=== PATIENT | female | born 1970 | race African-American/Black ===

== ENCOUNTER 2022-11-15 05:13 | Inpatient (IN) ==
[2022-11-15] MEDS ORDERED: OPTIRAY 320 125ml IV ONE (05:39)
--- NOTE | 2022-11-15 05:40 | Emergency Department Note ---
Impression & Plan Acute cerebrovascular accident (CVA), Acute hyperglycemia Admit to the [facility] ED Provider Note NAME: ANNY BATEMAN AGE: 52 SEX: F ARRIVES VIA: Walk-In INFORMANT: Patient's ED PROVIDER(S): Rosalinda Mosquera DO CHIEF COMPLAINT: Left-sided facial droop PLAN: Disposition: Admit to the [facility] Condition: Stable MEDICAL DECISION MAKING: This is a 52-year-old female patient who presents to the emergency department with sudden onset of left-sided facial droop. Patient awoke from sleep with slurred speech. She has a history of uncontrolled diabetes and hypertension. Last known well time was approximately 5 hours ago when she went to sleep. Upon arrival here in the emergency department, the patient's facial droop seems to be improving. She still remains weak in the right arm. Noncontrasted CT scan of the brain is unremarkable but the CT angiogram shows an M2 occlusion. Veronica gustafsonstla - Dr. Stratton was consulted but they did not feel they could offer any intervention at this time. The patient was not a candidate for TNKase as her symptoms were improving. Laboratory studies revealed significant hyperglycemia. Renal function was normal. I discussed the case with the [facility]ist-Dr. Salomon and she will evaluate for further inpatient care. Triage Nursing notes reviewed and agree with them. Additional history obtained from the patient's who is at the bedside Vital Signs: reviewed and remarkable for hypertension Differential diagnosis: Hypoglycemia, hypoglycemia, CVA, TIA Diagnostics interpreted by me: ECG: Normal sinus rhythm at a rate of [address] segment elevation or ectopy. There is a prolonged QTc at 497 ms. Cardiac Monitoring: Normal sinus rhythm at 93 Imaging studies: As per stat rad CT brain: See report CTA brain: See report CTA neck: See report Laboratory studies: See below Consultation(s): Dr. Stratton-Veronica telestroke HPI: 52/F arrives for evaluation of slurred speech and facial droop. The patient was in her usual state of health last evening except for increased edema in both lower extremities for which she took an extra torsemide. She awoke between 230 and 3:00 in the morning to go to the bathroom and felt dizzy. She noticed that she had some right-sided facial droop. She tried to take a drink and noted the water was running out of the right side of her mouth. She woke her who noted that she was having difficulty with speech and that her speech was slurred. They brought her here to the emergency department for evaluation of a possible stroke. PAST MEDICAL HISTORY:Obesity, diabetes, hypertension PAST SURGICAL HISTORY:See Below FAMILY HISTORY: See list SOCIAL HISTORY: Patient lives with her . She does not smoke or drink alcohol. HOME MEDICATIONS:See Below ALLERGIES: Some fruits VITALS:See Below PHYSICAL EXAMINATION: HEENT: Head - normocephalic and atraumatic. Pupils are equal, round, and reactive to light. Extraocular eye muscles are intact and sclera are anicteric. Ears - bilaterally patent canals with noninjected tympanic membranes and no evidence of hemotympanum. Nose - moist nasal mucosa without discharge. Mouth - moist buccal mucosa. Oropharynx is nonerythematous and there is no tonsillar exudate or edema noted. Neck: Supple; no JVD, nuchal rigidity, cervical lymphadenopathy, or auscultated bruits. Heart: Regular rate and rhythm. There is a normal S1 and S2 with no murmurs, clicks, or gallops appreciated. Lungs: Clear to auscultation bilaterally with no wheezes, rales, or rhonchi. Abdomen: Soft, completely nontender, nondistended, with good bowel sounds. There are no palpable pulsatile masses or hepatosplenomegaly. There is no guarding, rigidity, or rebound noted. Extremities: No evidence of cyanosis, clubbing, or edema. There are easily palpable peripheral pulses. Neuro:The patient is awake and alert, oriented to day, time, and place. Patient has significant weakness in her right upper extremity. She is left-handed. She has normal strength in both lower extremities. There are no cerebellar signs. Cranial nerves II through XII are intact except for slight droop to the right side of her mouth. This droop has significantly improved since she arrived here in the emergency department. ED COURSE: Times/Reassessments: Patient was evaluated quickly and A1, a stroke alert was called and then she was sent directly over for CT/CTA of the brain and neck. An order was placed for continuous cardiac monitoring. Patient was a normal sinus rhythm at a rate of 93. She did a twelve-lead EKG done as described above. Laboratory studies were drawn as above. [place] telestroke was performed. Overall, the patient's right-sided facial droop seems to be improving. The case was discussed at length with the [facility] neurologist as well as Dr. Salomon. Rosalinda Mosquera DO Past Med/Surg History Medical History Asthma Diabetes Hypertension Surgical History History of lipoma Family History Other Asthma Diabetes Hypertension Social History Smoking Status: Never smoker Hx Alcohol Use: Yes Alcohol type: beer, wine and hard liquor Hx Substance Use: No Preferred Language: Luxembourgish Communication Ability: Effective [employer] Coin [employer]er Required: No Beliefs That Will Affect Care: None Current Living Situation: Spouse Feels Safe at Home: Yes Assistive Devices: Glasses Allergies Allergies Allergy/AdvReac Type Severity Reaction Status Date / Time orange Allergy Hives Verified 11/15/22 09:57 peach Allergy Hives Verified 11/15/22 09:57 Home Meds Home Medications Medication Instructions Recorded Confirmed atorvastatin 40 mg tablet 40 mg PO DAILY 11/15/22 11/15/22 budesonide-formoterol HFA 160 2 puff inhalation BID 11/15/22 11/15/22 mcg-4.5 mcg/actuation aerosol inhaler lisinopril 20 mg tablet 20 mg PO DAILY 11/15/22 11/15/22 Results & Data (ED) Vital Signs Vital Signs - 24 hr 11/15/22 05:15 11/15/22 05:42 11/15/22 05:21 Pulse Rate 89 85 Pulse Rate from SpO2 Sensor Pulse Rhythm Regular Respiratory Rate 22 Respiratory Effort / Characteristics Non-Labored Spontaneous Respiratory Depth Normal Respiratory Pattern Regular Blood Pressure 144/84 H Blood Pressure Mean 104 Blood Pressure Position Sitting Pulse Oximetry 100 95 Oxygen Delivery Method Room Air Sepsis Recent Fever Within 48 Hours No Sepsis New/Unexplained Change in Mental Status N/A Sepsis Action Taken by Nursing No Action Required 11/15/22 05:40 11/15/22 05:42 11/15/22 05:43 Pulse Rate 85 84 Pulse Rate from SpO2 Sensor Pulse Rhythm Respiratory Rate 23 22 Respiratory Effort / Characteristics Respiratory Depth Respiratory Pattern Blood Pressure 155/116 H 162/93 H Blood Pressure Mean 129 116 Blood Pressure Position Pulse Oximetry 100 Oxygen Delivery Method Sepsis Recent Fever Within 48 Hours Sepsis New/Unexplained Change in Mental Status Sepsis Action Taken by Nursing 11/15/22 05:45 11/15/22 06:00 11/15/22 06:02 Pulse Rate 85 80 90 Pulse Rate from SpO2 Sensor 83 81 89 Pulse Rhythm Respiratory Rate 19 22 22 Respiratory Effort / Characteristics Respiratory Depth Respiratory Pattern Blood Pressure Blood Pressure Mean Blood Pressure Position Pulse Oximetry 100 99 100 Oxygen Delivery Method Sepsis Recent Fever Within 48 Hours Sepsis New/Unexplained Change in Mental Status Sepsis Action Taken by Nursing 11/15/22 06:04 11/15/22 06:04 11/15/22 06:11 Pulse Rate 89 84 Pulse Rate from SpO2 Sensor 89 88 Pulse Rhythm Respiratory Rate 26 H 25 H Respiratory Effort / Characteristics Respiratory Depth Respiratory Pattern Blood Pressure 167/115 H Blood Pressure Mean 132 Blood Pressure Position Pulse Oximetry 96 100 Oxygen Delivery Method Sepsis Recent Fever Within 48 Hours Sepsis New/Unexplained Change in Mental Status Sepsis Action Taken by Nursing 11/15/22 06:11 11/15/22 06:15 11/15/22 06:21 Pulse Rate 98 H 88 Pulse Rate from SpO2 Sensor 98 H 86 Pulse Rhythm Respiratory Rate 20 26 H Respiratory Effort / Characteristics Respiratory Depth Respiratory Pattern Blood Pressure 182/116 H 174/111 H Blood Pressure Mean 138 132 Blood Pressure Position Pulse Oximetry 100 99 Oxygen Delivery Method Sepsis Recent Fever Within 48 Hours Sepsis New/Unexplained Change in Mental Status Sepsis Action Taken by Nursing 11/15/22 06:30 11/15/22 06:40 11/15/22 06:51 Pulse Rate 97 H 84 82 Pulse Rate from SpO2 Sensor 83 83 Pulse Rhythm Respiratory Rate 17 24 28 H Respiratory Effort / Characteristics Respiratory Depth Respiratory Pattern Blood Pressure 154/77 H 145/81 H 164/99 H Blood Pressure Mean 102 102 120 Blood Pressure Position Pulse Oximetry 100 98 Oxygen Delivery Method Sepsis Recent Fever Within 48 Hours Sepsis New/Unexplained Change in Mental Status Sepsis Action Taken by Nursing Laboratory Data 11/15/22 Unknown Lab Results 11/15/22 11/15/22 11/15/22 Range/Units 05:33 05:38 05:38 WBC 6.52 (4.8-10.8) K/ul RBC 4.93 (4.20-5.40) M/uL Hgb 12.2 (12.0-16.0) g/dl POC Hgb 14.6 (12.0-16.0) g/dl Hct 37.7 (37.0-47.0) % POC Hct 43 (37-47) % MCV 76.5 L (80.0-100.0) fL MCH 24.7 L (25.0-34.0) pg MCHC 32.4 (32.0-36.0) g/dL RDW Std Deviation 38.5 (36.4-46.3) fL RDW Coeff of Gurmeet 13.9 (11.5-14.5) % Plt Count 230 (130-400) K/uL MPV 11.0 (9.4-12.4) fL PT 11.6 (9.0-12.0) Seconds INR 1.1 (0.9-1.1) APTT 28.8 (21.0-31.0) Seconds PTT Ratio 1.0 POC Sodium 138 (135-144) mmol/L Sodium (136-145) mmol/L POC Potassium 3.6 (3.3-5.0) mmol/L Potassium (3.5-5.1) mmol/L POC Chloride 98 L (101-112) mmol/L Chloride (98-107) mmol/L Carbon Dioxide (21-32) mmol/L POC Total CO2 27 (24-31) mmol/L Anion Gap (3-11) POC Anion Gap 18.0 (16-25) mmol/L POC BUN 17 (7-18) mg/dl BUN (6-23) mg/dl Creatinine (0.6-1.2) mg/dl POC Creatinine 0.8 (0.6-1.3) mg/dl Est Cr Clr Drug Dosing Est GFR ( Amer) ml/min Est GFR (Non-Af Amer) ml/min BUN/Creatinine Ratio (10-20) Glucose (70-99(Fasting)) mg/dl POC Glucose (70-99) mg/dl POC Glucose (other) 339 H (70-99) mg/dl Calcium (8.6-10.3) mg/dl POC Ioniz Calcium [place] 1.10 L (1.12-1.32) mmol/l Magnesium (1.7-2.4) mg/dl Total Bilirubin (0.2-1.0) mg/dl AST (13-39) U/L ALT (7-52) U/L Alkaline Phosphatase (34-104) U/L Troponin I High Sens (0-14) pg/ml Total Protein (6.0-8.3) gm/dl Albumin (3.4-5.0) gm/dl Globulin (2.5-4.0) gm/dl Albumin/Globulin Ratio (0.9-2) SARS-CoV-2, RNA, NAAT (NEGATIVE) 11/15/22 11/15/22 11/15/22 Range/Units 05:38 05:38 05:39 WBC (4.8-10.8) K/ul RBC (4.20-5.40) M/uL Hgb (12.0-16.0) g/dl POC Hgb (12.0-16.0) g/dl Hct (37.0-47.0) % POC Hct (37-47) % MCV (80.0-100.0) fL MCH (25.0-34.0) pg MCHC (32.0-36.0) g/dL RDW Std Deviation (36.4-46.3) fL RDW Coeff of Gurmeet (11.5-14.5) % Plt Count (130-400) K/uL MPV (9.4-12.4) fL PT (9.0-12.0) Seconds INR (0.9-1.1) APTT (21.0-31.0) Seconds PTT Ratio POC Sodium (135-144) mmol/L Sodium 135 L (136-145) mmol/L POC Potassium (3.3-5.0) mmol/L Potassium 3.7 (3.5-5.1) mmol/L POC Chloride (101-112) mmol/L Chloride 98 (98-107) mmol/L Carbon Dioxide 28 (21-32) mmol/L POC Total CO2 (24-31) mmol/L Anion Gap 9 (3-11) POC Anion Gap (16-25) mmol/L POC BUN (7-18) mg/dl BUN 16 (6-23) mg/dl Creatinine 0.85 (0.6-1.2) mg/dl POC Creatinine (0.6-1.3) mg/dl Est Cr Clr Drug Dosing Not Reportable Est GFR ( Amer) 91.3 ml/min Est GFR (Non-Af Amer) 78.8 ml/min BUN/Creatinine Ratio 18.8 (10-20) Glucose 330 H* (70-99(Fasting)) mg/dl POC Glucose 303 H* (70-99) mg/dl POC Glucose (other) (70-99) mg/dl Calcium 9.1 (8.6-10.3) mg/dl POC Ioniz Calcium [place] (1.12-1.32) mmol/l Magnesium 1.3 L (1.7-2.4) mg/dl Total Bilirubin 0.4 (0.2-1.0) mg/dl AST 12 L (13-39) U/L ALT 7 (7-52) U/L Alkaline Phosphatase 94 (34-104) U/L Troponin I High Sens 10.1 (0-14) pg/ml Total Protein 7.2 (6.0-8.3) gm/dl Albumin 3.9 (3.4-5.0) gm/dl Globulin 3.3 (2.5-4.0) gm/dl Albumin/Globulin Ratio 1.2 (0.9-2) SARS-CoV-2, RNA, NAAT (NEGATIVE) 11/15/22 Range/Units 06:22 WBC (4.8-10.8) K/ul RBC (4.20-5.40) M/uL Hgb (12.0-16.0) g/dl POC Hgb (12.0-16.0) g/dl Hct (37.0-47.0) % POC Hct (37-47) % MCV (80.0-100.0) fL MCH (25.0-34.0) pg MCHC (32.0-36.0) g/dL RDW Std Deviation (36.4-46.3) fL RDW Coeff of Gurmeet (11.5-14.5) % Plt Count (130-400) K/uL MPV (9.4-12.4) fL PT (9.0-12.0) Seconds INR (0.9-1.1) APTT (21.0-31.0) Seconds PTT Ratio POC Sodium (135-144) mmol/L Sodium (136-145) mmol/L POC Potassium (3.3-5.0) mmol/L Potassium (3.5-5.1) mmol/L POC Chloride (101-112) mmol/L Chloride (98-107) mmol/L Carbon Dioxide (21-32) mmol/L POC Total CO2 (24-31) mmol/L Anion Gap (3-11) POC Anion Gap (16-25) mmol/L POC BUN (7-18) mg/dl BUN (6-23) mg/dl Creatinine (0.6-1.2) mg/dl POC Creatinine (0.6-1.3) mg/dl Est Cr Clr Drug Dosing Est GFR ( Amer) ml/min Est GFR (Non-Af Amer) ml/min BUN/Creatinine Ratio (10-20) Glucose (70-99(Fasting)) mg/dl POC Glucose (70-99) mg/dl POC Glucose (other) (70-99) mg/dl Calcium (8.6-10.3) mg/dl POC Ioniz Calcium [place] (1.12-1.32) mmol/l Magnesium (1.7-2.4) mg/dl Total Bilirubin (0.2-1.0) mg/dl AST (13-39) U/L ALT (7-52) U/L Alkaline Phosphatase (34-104) U/L Troponin I High Sens (0-14) pg/ml Total Protein (6.0-8.3) gm/dl Albumin (3.4-5.0) gm/dl Globulin (2.5-4.0) gm/dl Albumin/Globulin Ratio (0.9-2) SARS-CoV-2, RNA, NAAT NEGATIVE (NEGATIVE) Administered Medications Acetaminophen (Acetaminophen 325 Mg Tab) 650 mg PO Q4H PRN PRN Reason: Pain or Fever Stop: 12/15/22 09:36 Last Admin: 11/15/22 19:39 Dose: 650 mg Documented By: MNM Atorvastatin Calcium (Atorvastatin 40 Mg Tab) 40 mg PO DAILY [facility] Stop: 12/15/22 09:36 Last Admin: 11/15/22 11:09 Dose: 40 mg Documented By: OO Insulin Aspart (Insulin Aspart Per Unit Charge) 0 units SC ACHS [facility] Stop: 12/15/22 11:29 Last Admin: 11/15/22 17:40 Dose: 3 units Documented By: KRYSTINA Co-signed By: LINDY Admin: 11/15/22 17:14 Dose: 9 units Documented By: KRYSTINA Co-signed By: DEMAR Admin: 11/15/22 14:15 Dose: 4 units Documented By: KRYSTINA Co-signed By: LINDY Admin: 11/15/22 12:55 Dose: 4 units Documented By: KRYSTINA Co-signed By: LINDY Discontinued Medications Aspirin (Aspirin Chew 324 Mg) Confirm Administered Dose 324 mg .ROUTE .STK-MED ONE Stop: 11/15/22 07:09 Last Admin: 11/15/22 07:14 Dose: 324 mg Documented By: AVA Clopidogrel Bisulfate (Clopidogrel Bisulfate 300 Mg Tab) Confirm Administered Dose 300 mg .ROUTE .STK-MED ONE Stop: 11/15/22 07:09 Last Admin: 11/15/22 07:14 Dose: 300 mg Documented By: AVA Gadobutrol (Gadobutrol 65ml Vial) 13 ml IV ONCE ONE Stop: 11/15/22 16:21 Last Admin: 11/15/22 16:20 Dose: 13 ml Documented By: ZULEMA Insulin Human Regular 10 units (/ Syringe) 10 mls @ 40 mls/min IV NOW ONE Stop: 11/15/22 08:16 Last Admin: 11/15/22 08:26 Dose: 40 mls/min Documented By: AVA Co-signed By: ANAT Sodium Chloride (Nss 1000ml) 1,000 mls @ 100 mls/hr IV .Q10H IZAIAH Stop: 11/15/22 19:36 Last Admin: 11/15/22 11:04 Dose: 100 mls/hr Documented By: KRYSTINA Magnesium Sulfate/Dextrose (Magnesium Sulfate / D5w) 1 gm in 100 mls @ 50 mls/hr IV Q2H IZAIAH Stop: 11/15/22 16:29 Last Admin: 11/15/22 18:19 Dose: 50 mls/hr Documented By: Infusion: 11/15/22 16:29 Dose: 50 mls/hr Documented By: Admin: 11/15/22 14:29 Dose: 50 mls/hr Documented By: Infusion: 11/15/22 13:04 Dose: 50 mls/hr Documented By: Admin: 11/15/22 11:04 Dose: 50 mls/hr Documented By: OO Insulin Aspart (Insulin Aspart Per Unit Charge) 0 units SC Q6 IZAIAH Stop: 12/15/22 10:29 Last Admin: 11/15/22 10:26 Dose: 3 units Documented By: OO Co-signed By: DEMAR Insulin Glargine (Lantus Per Unit Charge) 20 units SQ NOW ONE Stop: 11/15/22 13:31 Last Admin: 11/15/22 14:05 Dose: 20 units Documented By: OJennifer Co-signed By: MTP Ioversol (Optiray 320 125ml) 120 ml IV ONCE ONE Stop: 11/15/22 05:40 Last Admin: 11/15/22 05:40 Dose: 120 ml Documented By: BRM Discharge Plan Visit Data Chief Complaint: Stroke Alert ED Provider: Rosalinda Mosquera Discharge Problem: Acute cerebrovascular accident (CVA), Acute hyperglycemia Patient Disposition: Admitted As Inpatient Discharge Instructions Interventions: ED Discharge Assessment Last Done: 11/15/22 08:23
--- NOTE | 2022-11-15 05:43 | CT Scan Report ---
Exam(s): CT HEAD Without Contrast EXAM: CT Head Without Intravenous Contrast CLINICAL HISTORY: Reason for exam: Neuro deficit, acute, stroke suspected. TECHNIQUE: Axial computed tomography images of the head/brain without intravenous contrast. CTDI is 37.32 mGy and DLP is 546.36 mGy-cm. Automated exposure control was utilized for the study. A dose lowering technique was utilized adhering to the principles of ALARA. COMPARISON: No relevant prior studies available. FINDINGS: There is no acute intracranial hemorrhage or major vascular territory infarct. No mass effect or midline shift seen. There is no ventriculomegaly. Scattered hypodensities throughout the periventricular and subcortical white matter are noted, likely sequela of chronic microvascular changes. The calvarium is intact. Orbits unremarkable. The visualized paranasal sinuses and mastoid air cells are clear. IMPRESSION: No acute intracranial pathology. If persistent clinical concern for acute stroke, MRI could further evaluate Sequela of chronic microvascular ischemic angiopathy. Communications: Call Doctor Stroke Electronically signed by: David Duncan M.D. 11/15/22 05:42 AM
[2022-11-15 05:45] LABS: iSTAT Creatinine 0.8 mg/dl (0.6-1.3); iSTAT Hemoglobin 14.6 g/dl (12.0-16.0); iSTAT Ionized Calcium 1.1 mmol/l (1.12-1.32); iSTAT Potassium 3.6 mmol/L (3.3-5.0)
[2022-11-15 05:52] LABS: Hematocrit (blood only) 37.7 % (37.0-47.0); Hemoglobin 12.2 g/dl (12.0-16.0); Mean Corpuscular Hemoglobin 24.7 pg (25.0-34.0); Mean Corpuscular Hgb Conc 32.4 g/dL (32.0-36.0); Mean Corpuscular Volume 76.5 fL (80.0-100.0); Platelet Count 230 K/uL (130-400); RDW Coefficient of Variation 13.9 % (11.5-14.5); RDW Standard Deviation 38.5 fL (36.4-46.3); Red Blood Count 4.93 M/uL (4.20-5.40); White Blood Count 6.52 K/ul (4.8-10.8)
--- NOTE | 2022-11-15 06:01 | CT Scan Report ---
Exam(s): CTA NECK With Contrast IV Amt: 120 ML EXAM: CT Angiography Neck With Intravenous Contrast CLINICAL HISTORY: Reason for exam: neuro deficit, acute stroke suspected. TECHNIQUE: Routine carotid CT angiography protocol was performed with intravenous contrast. NASCET criteria using the distal ICAs for comparison were used for evaluation of stenoses. Automated exposure control was utilized for the study. A dose lowering technique was utilized adhering to the principles of ALARA. MIP reconstructed images were created and reviewed. CONTRAST: Patient received 120 ML of IV contrast COMPARISON: None. FINDINGS: VASCULATURE: Right common carotid artery: No occlusion or significant stenosis. No dissection. Right internal carotid artery: Extracranial segment is patent with no occlusion or significant stenosis. No dissection. Right external carotid artery: Unremarkable. No occlusion. Right vertebral artery: No occlusion or significant stenosis. No dissection. Left common carotid artery: No occlusion or significant stenosis. No dissection. Left internal carotid artery: Extracranial segment is patent with no occlusion or significant stenosis. No dissection. Left external carotid artery: Unremarkable. No occlusion. Left vertebral artery: No occlusion or significant stenosis. No dissection. NECK: Bones/joints: Multilevel cervical spondylosis. Soft tissues: No acute findings. Thyroid: 2.6 cm nodule in the right thyroid lobe. Nonemergent ultrasound suggested to further evaluate. Lung apices: Prominent pulmonary vein in the right lung apex. CAROTID STENOSIS REFERENCE USING NASCET CRITERIA: % ICA stenosis = (1 - narrowest ICA diameter/diameter of distal cervical ICA) x 100. Mild - <50% stenosis. Moderate - 50-69% stenosis. Severe - 70-94% stenosis. Near occlusion - 95-99% stenosis. Occluded - 100% stenosis. IMPRESSION: No acute findings in the arteries of the neck. 2.6 cm nodule in the right thyroid lobe. Nonemergent ultrasound suggested to further evaluate. Prominent pulmonary vein in the right lung apex, nonemergent CTA chest could further characterize for underlying vascular anomalies. Communications: Call Doctor Stroke Electronically signed by: David Duncan M.D. 11/15/22 06:00 AM
[2022-11-15 06:04] LABS: Alanine Aminotransferase 7 U/L (7-52); Albumin Globulin Ratio 1.2 (0.9-2); Albumin Level 3.9 gm/dl (3.4-5.0); Alkaline Phosphatase 94 U/L (34-104); Anion Gap 9 (3-11); Aspartate Aminotransferase 12 U/L (13-39); BUN Creatinine Ratio 18.8 (10-20); Bilirubin,Total 0.4 mg/dl (0.2-1.0); Blood Urea Nitrogen 16 mg/dl (6-23); Calcium 9.1 mg/dl (8.6-10.3); Carbon Dioxide 28 mmol/L (21-32); Chloride 98 mmol/L (98-107); Est GFR (African American) 91.3 ml/min; Est GFR (Non-African American) 78.8 ml/min; Globulin 3.3 gm/dl (2.5-4.0); INR 1.1 (0.9-1.1); Magnesium 1.3 mg/dl (1.7-2.4); Partial Thromboplastin Time 28.8 Seconds (21.0-31.0); Potassium 3.7 mmol/L (3.5-5.1); Prothrombin Time 11.6 Seconds (9.0-12.0); Sodium 135 mmol/L (136-145); Total Protein 7.2 gm/dl (6.0-8.3)
--- NOTE | 2022-11-15 06:06 | CT Scan Report ---
Exam(s): CTA HEAD With Contrast IV Amt: 120 ML EXAM: CT Angiography Head With Intravenous Contrast CLINICAL HISTORY: Reason for exam: neuro deficit, acute stroke suspected. TECHNIQUE: Axial computed tomographic angiography images of the head with intravenous contrast. Automated exposure control was utilized for the study. A dose lowering technique was utilized adhering to the principles of ALARA. MIP reconstructed images were created and reviewed. CONTRAST: Patient received 120 ML of IV contrast COMPARISON: Recently performed CT head. FINDINGS: Right internal carotid artery: Mild atherosclerosis. Intracranial segment is patent with no significant stenosis. No aneurysm. Right anterior cerebral artery: Multifocal short segment severe stenosis with distal reconstitution of caliber within the A2 and A3 segments of the bilateral ACAs. No aneurysm. Right middle cerebral artery: No occlusion or significant stenosis. No aneurysm. Right posterior cerebral artery: No occlusion or significant stenosis. No aneurysm. Right vertebral artery: Unremarkable as visualized. Left internal carotid artery: Mild atherosclerosis. Intracranial segment is patent with no significant stenosis. No aneurysm. Left anterior cerebral artery: See above. Left middle cerebral artery: Focal occlusion in the middle M2 segment of the left MCA with distal reconstitution of caliber. Distal narrowing with reconstitution of caliber within some of the other M3 segments on the left. No aneurysm. Left posterior cerebral artery: No occlusion or significant stenosis. No aneurysm. Left vertebral artery: Unremarkable as visualized. Basilar artery: No occlusion or significant stenosis. No aneurysm. IMPRESSION: Focal occlusion in the middle M2 segment of the left MCA with distal reconstitution of caliber. Distal narrowing with reconstitution of caliber within some of the other M3 segments on the left. Additional multifocal stenosis in the bilateral ACAs. Correlation for underlying vasculitic phenomena suggested. Communications: Call Doctor Stroke Electronically signed by: David Duncan M.D. 11/15/22 06:05 AM
[2022-11-15 06:18] LABS: Glucose 330 mg/dl (70-99(Fasting))
--- NOTE | 2022-11-15 06:28 | XRay Report ---
SINGLE VIEW CHEST CLINICAL HISTORY: Strokelike symptoms. FINDINGS: An AP, portable, upright chest radiograph is obtained. No prior studies are available for c omparison at the time of dictation. The examination is degraded by portable technique and apical lord otic positioning. The cardiomediastinal silhouette appears enlarged. The lungs and pleural spaces are clear noting bibasilar atelectasis. No pneumothorax is seen. The skeletal structures appear osteopen ic. The bony thorax is grossly intact. IMPRESSION: No acute cardiopulmonary abnormality. ACT 112: Negative or not required by law. Electronically signed by: Khanh Martinez M.D. 11/15/2022 6:27 AM
[2022-11-15] MEDS ORDERED: CLOPIDOGREL BISULFATE 300 MG TAB PO STA (07:02)
[2022-11-15] MEDS ORDERED: ASPIRIN CHEW 324 MG PO STA (07:02)
--- NOTE | 2022-11-15 07:03 | History & Physical Report ---
Date of Service November 15, 2022 Assessment & Plan (1) Right sided weakness: Plan: 52yo left handed female last normal at 11/15/22 at 03:00 presenting with headache, right sided facial droop and weakness in RUE and RLE. Patient hypertensive, otherwise stable. Labs are significant for hyperglycemia. CT findings as above - noted to have a focal occlusion in the middle M2 segment of the left MCA with distal reconstitution of caliber. Distal narrowing with reconstitution of caliber within some of the other M3 segments on the left. Case discussed with Tele-stroke Neurologist who reports discussing the CTA findings with on-call interventional neurologist. No intervention on middle M2 occlusion at this time. Patient loaded with ASA and Plavix -Admit to PCU -Keep HOB flat -NIHSS and neuro checks per protocol -Check MRI brain -Check 2D echo -Check HgbA1C and Lipid profile -Continue ASA 81mg po daily -Continue Plavix 75mg po daily -Continue Atorvastatin 40mg po daily -Neurology consultation appreciated (2) Asthma: Plan: Chronic. No cough/SOB or wheeze -Continue home Symbicort (3) Diabetes: Plan: Elevated blood sugar on arrival - patient does not take her insulin as prescribed. -Lantus 12u BID -ISS -Pharmacy Glycemic management consult appreciated (4) Hypertension: Plan: Blood pressure presently 151/62 -Hold Lisinopril to allow for permissive HTN Cool right fingers reported by nursing -Check RUE arterial doppler Thyroid nodule in the right lobe -Non-emergent ultrasound when acute issues resolve History of Present Illness Chief Complaint: right sided weakness Primary Care Provider: NO PCP Angie Fitzpatrick is a 52yo female with HTN, DM and Asthma presenting with right sided weakness. Patient was in her usual state of health until last night. She woke up around 0300 and went to the bathroom and felt normal. She woke again at 04:30 to use the bathroom and felt dizzy and "weird". She had numbness on her right face with drooling and slurred speech. Also with difficulty ambulating due to weakness. She was brought into the ER as a Code Stroke. No tPA administered. She is complaining of headache at this time. She feels that her facial droop is improving. No additional complaints at this time. She specifically denies fever, chills, cough, CP, SOB. Denies abdominal pain, nausea, vomiting, diarrhea or constipation. In the ER she is afebrile, hypertensive, otherwise HD stable ER Course: Plavix 300mg ASA 324mg Allergies Allergy/AdvReac Type Severity Reaction Status Date / Time oranges Allergy Hives Uncoded 11/15/22 07:22 peaches Allergy Hives Uncoded 11/15/22 07:22 Home Medications Medication Instructions Recorded Confirmed Type atorvastatin 40 mg tablet 40 mg PO DAILY 11/15/22 11/15/22 History budesonide-formoterol HFA 160 2 puff inhalation BID 11/15/22 11/15/22 History mcg-4.5 mcg/actuation aerosol inhaler lisinopril 20 mg tablet 20 mg PO DAILY 11/15/22 11/15/22 History Past Med/Surg History Medical History (Updated 11/15/22 @ 07:35 by Laxmi Salomon DO) Asthma Diabetes Hypertension Surgical History (Updated 11/15/22 @ 07:30 by Laxmi Salomon DO) History of lipoma Family History (Updated 11/15/22 @ 07:30 by Laxmi Salomon DO) Other Asthma Diabetes Hypertension Social History (Updated 11/15/22 @ 07:30 by Laxmi Salomon DO) Smoking Status: Unknown if ever smoked Hx Alcohol Use: No Hx Substance Use: No Preferred Language: Romansh Feels Safe at Home: Yes Review of Systems Review of Systems: All systems reviewed & are unremarkable except as noted in HPI & below Physical Exam Physical Exam: General: patient resting comfortably, NAD, non-toxic in appearance, AA&O x 4 Skin: warm, dry, intact, no rashes or lesions HEENT: NC/AT, PERRL, EOMI, anicteric sclera, conjunctiva without injection, external ear normal to inspection and nontender, nares patent, moist mucus membranes, dentition intact, no oropharyngeal lesions, neck supple, trachea midline, no LAD, no thyromegaly, no JVD Heart: +S1/S2, regular, no m/r/g Lungs: equal air entry bilaterally, no rales/rhonchi/wheezes Abd: +BS, soft, NT/ND, no masses/organomegaly/ascites Ext: warm, 2+ pulses in UE/LE bilaterally, no clubbing/cyanosis or edema Neuro: AA&O x 4, speech slurred, right facial droop, CN II-XII grossly intact, sensation to light touch intact, MS in RUE 4/5 with drift, LUE 5/5, RLE 5/5, LLE 5/5 Results & Data Results & Data Vital Signs (Past 12 Hours) Vital Signs Pulse Resp BP Pulse Ox O2 Del Method 11/15/22 06:40 84 24 145/81 H 100 11/15/22 06:30 97 H 17 154/77 H 11/15/22 06:21 88 26 H 174/111 H 99 11/15/22 06:15 98 H 20 100 11/15/22 06:11 182/116 H 11/15/22 06:11 84 25 H 100 11/15/22 06:04 167/115 H 11/15/22 06:04 89 26 H 96 11/15/22 06:02 90 22 100 11/15/22 06:00 80 22 99 11/15/22 05:45 85 19 100 11/15/22 05:43 84 22 162/93 H 100 11/15/22 05:42 155/116 H 11/15/22 05:40 85 23 11/15/22 05:21 95 Room Air 11/15/22 05:42 85 11/15/22 05:15 89 22 144/84 H 100 Laboratory Results Laboratory Results WBC 6.52 K/ul (4.8-10.8) 11/15/22 05:38 RBC 4.93 M/uL (4.20-5.40) 11/15/22 05:38 Hgb 12.2 g/dl (12.0-16.0) 11/15/22 05:38 POC Hgb 14.6 g/dl (12.0-16.0) 11/15/22 05:33 Hct 37.7 % (37.0-47.0) 11/15/22 05:38 POC Hct 43 % (37-47) 11/15/22 05:33 MCV 76.5 fL (80.0-100.0) L 11/15/22 05:38 MCH 24.7 pg (25.0-34.0) L 11/15/22 05:38 MCHC 32.4 g/dL (32.0-36.0) 11/15/22 05:38 RDW Std Deviation 38.5 fL (36.4-46.3) 11/15/22 05:38 RDW Coeff of Gurmeet 13.9 % (11.5-14.5) 11/15/22 05:38 Plt Count 230 K/uL (130-400) 11/15/22 05:38 MPV 11.0 fL (9.4-12.4) 11/15/22 05:38 PT 11.6 Seconds (9.0-12.0) 11/15/22 05:38 INR 1.1 (0.9-1.1) 11/15/22 05:38 APTT 28.8 Seconds (21.0-31.0) 11/15/22 05:38 PTT Ratio 1.0 11/15/22 05:38 POC Sodium 138 mmol/L (135-144) 11/15/22 05:33 Sodium 135 mmol/L (136-145) L 11/15/22 05:38 POC Potassium 3.6 mmol/L (3.3-5.0) 11/15/22 05:33 Potassium 3.7 mmol/L (3.5-5.1) 11/15/22 05:38 POC Chloride 98 mmol/L (101-112) L 11/15/22 05:33 Chloride 98 mmol/L (98-107) 11/15/22 05:38 Carbon Dioxide 28 mmol/L (21-32) 11/15/22 05:38 POC Total CO2 27 mmol/L (24-31) 11/15/22 05:33 Anion Gap 9 (3-11) 11/15/22 05:38 POC Anion Gap 18.0 mmol/L (16-25) 11/15/22 05:33 POC BUN 17 mg/dl (7-18) 11/15/22 05:33 BUN 16 mg/dl (6-23) 11/15/22 05:38 Creatinine 0.85 mg/dl (0.6-1.2) 11/15/22 05:38 POC Creatinine 0.8 mg/dl (0.6-1.3) 11/15/22 05:33 Est Cr Clr Drug Dosing Not Reportable 11/15/22 05:38 Est GFR ( Amer) 91.3 ml/min 11/15/22 05:38 Est GFR (Non-Af Amer) 78.8 ml/min 11/15/22 05:38 BUN/Creatinine Ratio 18.8 (10-20) 11/15/22 05:38 Glucose 330 mg/dl (70-99(Fasting)) H* 11/15/22 05:38 POC Glucose 303 mg/dl (70-99) H* 11/15/22 05:39 POC Glucose (other) 339 mg/dl (70-99) H 11/15/22 05:33 Calcium 9.1 mg/dl (8.6-10.3) 11/15/22 05:38 POC Ioniz Calcium [place] 1.10 mmol/l (1.12-1.32) L 11/15/22 05:33 Magnesium 1.3 mg/dl (1.7-2.4) L 11/15/22 05:38 Total Bilirubin 0.4 mg/dl (0.2-1.0) 11/15/22 05:38 AST 12 U/L (13-39) L 11/15/22 05:38 ALT 7 U/L (7-52) 11/15/22 05:38 Alkaline Phosphatase 94 U/L (34-104) 11/15/22 05:38 Total Protein 7.2 gm/dl (6.0-8.3) 11/15/22 05:38 Albumin 3.9 gm/dl (3.4-5.0) 11/15/22 05:38 Globulin 3.3 gm/dl (2.5-4.0) 11/15/22 05:38 Albumin/Globulin Ratio 1.2 (0.9-2) 11/15/22 05:38 SARS-CoV-2, RNA, NAAT NEGATIVE (NEGATIVE) 11/15/22 06:22 Impressions Chest X-Ray 11/15/22 05:21 SINGLE VIEW CHEST CLINICAL HISTORY: Strokelike symptoms. FINDINGS: An AP, portable, upright chest radiograph is obtained. No prior studies are available for comparison at the time of dictation. The examination is degraded by portable technique and apical lordotic positioning. The cardiomediastinal silhouette appears enlarged. The lungs and pleural spaces are clear noting bibasilar atelectasis. No pneumothorax is seen. The skeletal structures appear osteopenic. The bony thorax is grossly intact. IMPRESSION: No acute cardiopulmonary abnormality. ACT 112: Negative or not required by law. Electronically signed by: Khanh Martinez M.D. 11/15/2022 6:[address] 11/15/22 05:21 CR Exam(s): CT HEAD Without Contrast EXAM: CT Head Without Intravenous Contrast CLINICAL HISTORY: Reason for exam: Neuro deficit, acute, stroke suspected. TECHNIQUE: Axial computed tomography images of the head/brain without intravenous contrast. CTDI is 37.32 mGy and DLP is 546.36 mGy-cm. Automated exposure control was utilized for the study. A dose lowering technique was utilized adhering to the principles of ALARA. COMPARISON: No relevant prior studies available. FINDINGS: There is no acute intracranial hemorrhage or major vascular territory infarct. No mass effect or midline shift seen. There is no ventriculomegaly. Scattered hypodensities throughout the periventricular and subcortical white matter are noted, likely sequela of chronic microvascular changes. The calvarium is intact. Orbits unremarkable. The visualized paranasal sinuses and mastoid air cells are clear. IMPRESSION: No acute intracranial pathology. If persistent clinical concern for acute stroke, MRI could further evaluate Sequela of chronic microvascular ischemic angiopathy. Communications: Call Doctor Stroke Electronically signed by: David Duncan M.D. 11/15/22 05:42 AM Head CTA 11/15/22 05:30 CR Exam(s): CTA HEAD With Contrast IV Amt: 120 ML EXAM: CT Angiography Head With Intravenous Contrast CLINICAL HISTORY: Reason for exam: neuro deficit, acute stroke suspected. TECHNIQUE: Axial computed tomographic angiography images of the head with intravenous contrast. Automated exposure control was utilized for the study. A dose lowering technique was utilized adhering to the principles of ALARA. MIP reconstructed images were created and reviewed. CONTRAST: Patient received 120 ML of IV contrast COMPARISON: Recently performed CT head. FINDINGS: Right internal carotid artery: Mild atherosclerosis. Intracranial segment is patent with no significant stenosis. No aneurysm. Right anterior cerebral artery: Multifocal short segment severe stenosis with distal reconstitution of caliber within the A2 and A3 segments of the bilateral ACAs. No aneurysm. Right middle cerebral artery: No occlusion or significant stenosis. No aneurysm. Right posterior cerebral artery: No occlusion or significant stenosis. No aneurysm. Right vertebral artery: Unremarkable as visualized. Left internal carotid artery: Mild atherosclerosis. Intracranial segment is patent with no significant stenosis. No aneurysm. Left anterior cerebral artery: See above. Left middle cerebral artery: Focal occlusion in the middle M2 segment of the left MCA with distal reconstitution of caliber. Distal narrowing with reconstitution of caliber within some of the other M3 segments on the left. No aneurysm. Left posterior cerebral artery: No occlusion or significant stenosis. No aneurysm. Left vertebral artery: Unremarkable as visualized. Basilar artery: No occlusion or significant stenosis. No aneurysm. IMPRESSION: Focal occlusion in the middle M2 segment of the left MCA with distal reconstitution of caliber. Distal narrowing with reconstitution of caliber within some of the other M3 segments on the left. Additional multifocal stenosis in the bilateral ACAs. Correlation for underlying vasculitic phenomena suggested. Communications: Call Doctor Stroke Electronically signed by: David Duncan M.D. 11/15/22 06:05 AM Neck CTA 11/15/22 05:30 CR Exam(s): CTA NECK With Contrast IV Amt: 120 ML EXAM: CT Angiography Neck With Intravenous Contrast CLINICAL HISTORY: Reason for exam: neuro deficit, acute stroke suspected. TECHNIQUE: Routine carotid CT angiography protocol was performed with intravenous contrast. NASCET criteria using the distal ICAs for comparison were used for evaluation of stenoses. Automated exposure control was utilized for the study. A dose lowering technique was utilized adhering to the principles of ALARA. MIP reconstructed images were created and reviewed. CONTRAST: Patient received 120 ML of IV contrast COMPARISON: None. FINDINGS: VASCULATURE: Right common carotid artery: No occlusion or significant stenosis. No dissection. Right internal carotid artery: Extracranial segment is patent with no occlusion or significant stenosis. No dissection. Right external carotid artery: Unremarkable. No occlusion. Right vertebral artery: No occlusion or significant stenosis. No dissection. Left common carotid artery: No occlusion or significant stenosis. No dissection. Left internal carotid artery: Extracranial segment is patent with no occlusion or significant stenosis. No dissection. Left external carotid artery: Unremarkable. No occlusion. Left vertebral artery: No occlusion or significant stenosis. No dissection. NECK: Bones/joints: Multilevel cervical spondylosis. Soft tissues: No acute findings. Thyroid: 2.6 cm nodule in the right thyroid lobe. Nonemergent ultrasound suggested to further evaluate. Lung apices: Prominent pulmonary vein in the right lung apex. CAROTID STENOSIS REFERENCE USING NASCET CRITERIA: % ICA stenosis = (1 - narrowest ICA diameter/diameter of distal cervical ICA) x 100. Mild - <50% stenosis. Moderate - 50-69% stenosis. Severe - 70-94% stenosis. Near occlusion - 95-99% stenosis. Occluded - 100% stenosis. IMPRESSION: No acute findings in the arteries of the neck. 2.6 cm nodule in the right thyroid lobe. Nonemergent ultrasound suggested to further evaluate. Prominent pulmonary vein in the right lung apex, nonemergent CTA chest could further characterize for underlying vascular anomalies. Communications: Call Doctor Stroke Electronically signed by: David Duncan M.D. 11/15/22 06:00 AM Code Status & VTE Plan VTE Prophylaxis Plan VTE Prophylaxis will be ordered: Yes PG Care Time/CCT Total # of Minutes Spent Total Time Spent with Patient: Total time spent is greater than 50% in coordination of care (as documented) at patient's floor/unit and/or counseling patient: Coding Level of Care Code 91420 INT INP/OBS CARE 3/75MIN Diagnoses Right sided weakness R53.1 Asthma J45.909 Diabetes E11.9 Hypertension I10
[2022-11-15] MEDS ORDERED: ASPIRIN CHEW 324 MG ONE (07:08)
[2022-11-15] MEDS ORDERED: CLOPIDOGREL BISULFATE 300 MG TAB ONE (07:08)
[2022-11-15] MEDS ORDERED: NovoLIN-R INSULIN PER UNIT CHARGE IV STA (07:52)
[2022-11-15] MEDS ORDERED: INSULIN HUMAN REGULAR PER UNIT 10 UNITS in SYRINGE 0 ML IV ONE (08:10)
[2022-11-15] MEDS ORDERED: INSULIN HUMAN REGULAR PER UNIT 10 UNITS in SYRINGE 9.9 ML IV ONE (08:15)
[2022-11-15] MEDS ORDERED: PHARMACIST DISCHARGE MED REC CONSULT PRN (09:37)
[2022-11-15] MEDS ORDERED: PHARMACY GLYCEMIC MGMT CONSULT PRN (09:37)
[2022-11-15] MEDS ORDERED: GLUCOSE 10 TAB/TUBE PO PRN (09:37)
[2022-11-15] MEDS ORDERED: GLUCOSE 40% GEL 15 GM TUBE PO PRN (09:37)
[2022-11-15] MEDS ORDERED: GLUCAGON FOR INJ 1 MG VIAL SQ PRN (09:37)
[2022-11-15] MEDS ORDERED: DEXTROSE 50% 50 ML SYRINGE IV PRN (09:37)
[2022-11-15] MEDS ORDERED: CARBOHYDRATES FOR HYPOGLYCEMIA PO PRN (09:37)
[2022-11-15] MEDS ORDERED: ONDANSETRON INJ 2 MG/ML 2 ML VIAL IV PRN (09:37)
[2022-11-15] MEDS ORDERED: SODIUM CHLORIDE 0.9% 1000ML 1,000 ML IV SCH (09:37)
[2022-11-15] MEDS ORDERED: INSULIN ASPART PER UNIT CHARGE SC SCH (10:30)
--- NOTE | 2022-11-15 10:37 | Neurology Consultation ---
Date of Consultation November 15, 2022 Assessment & Plan (1) Acute ischemic left MCA stroke: Plan 52-year-old left handed female awakening early this morning with dysarthria and right hemiparesis in the context of a probable acute left MCA territory stroke due a focal occlusion of the middle M2 segment with distal reconstitution and distal narrowing with reconstitution of caliber with some of the other M3 segments on the left. Additional multifocal stenoses in the bilateral ACAs also noted. Stroke risk factors for this patient include diabetes mellitus and hypertension. Her blood glucose is significantly elevated. She has a normal sinus rhythm on ECG. Follow-up with results of brain MRI. Follow-up with results of echocardiogram. Follow-up with results of lipid panel and hemoglobin A1c. Goal LDL 70 or less, may need to adjust atorvastatin dosage depending on results. Continue with dual antiplatelet therapy consisting of aspirin 81 mg/day and clopidogrel 75 mg/day. Because she has not been on antiplatelet therapy, would recommend transitioning to daily low-dose aspirin monotherapy after 3 weeks. Permissive hypertension appropriate acutely, systolic blood pressure goal 140 to 160 mmHg. (Long-term blood pressure goal less than 130/80.) Given possibility of vasculitis as suggested on CT angiography, would also check inflammatory markers including ESR, CRP, ROXI screen, ANCA, complement levels. If positive would need follow-up with rheumatology. If inflammatory markers are significantly elevated, would consider pursuing temporal artery biopsy. Consider obtaining 30-day mobile cardiac outpatient telemetry. Consultations with speech therapy, PT, OT Please contact me if you have any questions regarding this neurologic consultation. History of Present Illness Reason for Consultation: stroke Requesting Physician: Laxmi Salomon DO Attending Physician: Stephen Jose MD History of Present Illness The patient is a 52-year-old left-handed female who awoke early this morning with right facial numbness and slurred speech. She also complains of weakness of the right arm and headache. She was evaluated in the emergency department and had a telestroke consultation, TNKase was not administered. The telestroke consultation report is not available at this time. Past medical history is notable for diabetes mellitus and hypertension. She is afebrile. She is hypertensive. A CT of the head was negative for hemorrhage or acute process. A CTA of the head reveals a focal occlusion in the middle M2 segment of the left middle cerebral artery with distal reconstitution of caliber. There is distal narrowing with reconstitution of caliber with some of the other M3 segments on the left. Additional multifocal stenoses in the bilateral ACAs also noted, with possibility of vasculitis suggested. CTA of the neck unremarkable. Brain MRI pending at this time. A CBC is unremarkable. A blood glucose was 330. Troponin 10.1. An electrocardiogram reveals a normal sinus rhythm, prolonged QT. She was given a loading dose of clopidogrel and aspirin in the emergency department. Her symptoms are persistent this morning. Allergies Allergy/AdvReac Type Severity Reaction Status Date / Time orange Allergy Hives Verified 11/15/22 09:57 peach Allergy Hives Verified 11/15/22 09:57 Home Medications Medication Instructions Recorded Confirmed Type atorvastatin 40 mg tablet 40 mg PO DAILY 11/15/22 11/15/22 History budesonide-formoterol HFA 160 2 puff inhalation BID 11/15/22 11/15/22 History mcg-4.5 mcg/actuation aerosol inhaler lisinopril 20 mg tablet 20 mg PO DAILY 11/15/22 11/15/22 History Patient History Medical History Asthma Diabetes Hypertension Surgical History History of lipoma Family History Other Asthma Diabetes Hypertension Social History Smoking Status: Never smoker Hx Alcohol Use: Yes Alcohol type: beer, wine and hard liquor Hx Substance Use: No Preferred Language: Latvian Communication Ability: Effective Equipment Mechanic Required: No Beliefs That Will Affect Care: None Current Living Situation: Spouse Feels Safe at Home: Yes Assistive Devices: Glasses Review of Systems Constitutional: no fever and no chills Eyes: no blind spots and no diplopia Ear, Nose, Mouth, Throat: no hearing loss Respiratory: no cough and no dyspnea Cardiovascular: no chest pain and no palpitations Gastrointestinal: no nausea and no vomiting Genitourinary: no dysuria Musculoskeletal: no neck pain and no myalgia Integumentary: no rash and no lesions Neurologic: as per Subjective / HPI, + localized weakness, + loss of sensation, + headache(s) and + abnormal speech Psychiatric: no depression and no anxiety Hematologic / Lymphatic: no easy bleeding and no easy bruising Exam (Neuro) Constitutional: well developed and well nourished; no acute distress Eyes: normal visual hammond by confrontation, PERRL and EOM intact bilaterally Cardiovascular: Vessels: no carotid bruit Neurologic: Oriented to:: Person, Place and Time Memory: Short Term Intact and Remote Intact Attention: Span Intact and Concentration Intact Speech Fluency: Dysarthria Speech Aphasia: negative Aphasia Fund of Knowledge: Current Events, Past History and Vocabulary Cranial Nerves: Normal II, III, IV, , V, VII, VIII, IX, X, XI and XII Motor Strength: Normal Lower Extremities and Hemiparesis Laterality: Right; negative Normal Upper Extremities Motor Tone: Normal Lower Extremities and Normal Upper Extremities Muscle Bulk/Involuntary Movements: No Involuntary Movements; negative Muscle Atrophy Sensation: Light Touch Intact, Pain/Temperature Intact, Vibration Intact and Proprioception Intact Coordination: Finger-Nose Abnormal Laterality: Right; negative Dysdiadochokinesia or Heel-Mendoza Abnormal Deep Tendon Reflexes: Rt Triceps: 1+, Lt Triceps: 1+, Rt Biceps: 1+, Lt Biceps: 1+, Rt Brachioradialis: 1+, Lt Brachioradialis: 1+, Rt Patellar: 1+, Lt Patellar: 1+, Rt Ankle: 1+ and Lt Ankle: 1+ Special Tests: negative Babinski Present Details: Gait cannot be tested. Unable to visualize optic nerves with direct ophthalmoscopic examination. Results & Data Vital Signs (Past 12 Hours) Vital Signs Temp Pulse Pulse Resp BP BP Pulse Ox 11/15/22 08:45 36.5 C 90 20 155/99 H 100 11/15/22 08:00 83 16 142/70 H 97 11/15/22 07:30 87 15 145/76 H 100 11/15/22 07:01 91 H 20 151/67 H 98 11/15/22 06:51 82 28 H 164/99 H 98 11/15/22 06:40 84 24 145/81 H 100 11/15/22 06:30 97 H 17 154/77 H 11/15/22 06:21 88 26 H 174/111 H 99 11/15/22 06:15 98 H 20 100 11/15/22 06:11 182/116 H 11/15/22 06:11 84 25 H 100 11/15/22 06:04 167/115 H 11/15/22 06:04 89 26 H 96 11/15/22 06:02 90 22 100 11/15/22 06:00 80 22 99 11/15/22 05:45 85 19 100 11/15/22 05:43 84 22 162/93 H 100 11/15/22 05:42 155/116 H 11/15/22 05:40 85 23 11/15/22 05:21 95 11/15/22 05:42 85 11/15/22 05:15 89 22 144/84 H 100 O2 Del Method 11/15/22 08:45 Room Air 11/15/22 08:00 11/15/22 07:30 11/15/22 07:01 11/15/22 06:51 11/15/22 06:40 11/15/22 06:30 11/15/22 06:21 11/15/22 06:15 11/15/22 06:11 11/15/22 06:11 11/15/22 06:04 11/15/22 06:04 11/15/22 06:02 11/15/22 06:00 11/15/22 05:45 11/15/22 05:43 11/15/22 05:42 11/15/22 05:40 11/15/22 05:21 Room Air 11/15/22 05:42 11/15/22 05:15 Laboratory Results WBC 6.52, hemoglobin 12.2, hematocrit 37.7, platelet count 230, sodium 135, potassium 3.7, BUN 16, creatinine 0.85, glucose 330, calcium 9.1, magnesium 1.3, AST 12, ALT 7, troponin 10.1, SARS-CoV-[address] of the head including CTA of the head and neck are as described in the HPI. Electrocardiogram is as described in the HPI. Coding Level of Care Code 85888 INT INP/OBS CARE 3/75MIN Diagnoses Acute ischemic left MCA stroke I63.512
[2022-11-15] MEDS: MAGNESIUM SULFATE / D5W 1 GM/100 ML BAG IV SCH ×3 (11:04→18:19)
[2022-11-15] MEDS: ATORVASTATIN 40 MG TAB PO SCH (11:09)
[2022-11-15] MEDS ORDERED: Nursing to Pharmacy Communication SCH (11:30)
[2022-11-15] MEDS: INSULIN ASPART PER UNIT CHARGE SC SCH ×5 (12:55→20:28)
[2022-11-15] MEDS ORDERED: LANTUS PER UNIT CHARGE SQ ONE (13:30)
--- NOTE | 2022-11-15 13:32 | Pharmacy Report ---
Pharmacy Glycemic Short Note 2 - Date of Service November 15, 2022 - Glycemic Short BSG Results (Last 24 hours): 11/15/22 11/15/22 11/15/22 05:33 05:38 05:39 Glucose 330 H* POC Glucose 303 H* POC Glucose (other) 339 H 11/15/22 11/15/22 09:46 11:22 Glucose POC Glucose 210 H 189 H POC Glucose (other) OUTPATIENT ANTIDIABETIC REGIMEN: * N/A * HbA1C pending ASSESSMENT: * Ms Fitzpatrick is a 52 y/o F with a PMH of T2DM who presents with stroke-like symptoms. Initially patient NPO, but now has a diet ordered. * BSG on admission was 330 and patient received 10 units of IV insulin. BSG post IV insulin was 210 mg/dL. * At lunchtime day of admission BSG was 189 mg/dL. * Lantus 20 units (almost full weight-based stress of 1) x 1 since patient did eat some lunch. Scale for tomorrow based upon response. * Novolog weight-based stress of 1-2 due to patient's body habitus. PLAN FOR INPATIENT GLYCEMIC CONTROL: * Basal insulin * Lantus 20 units SQ x 1 then scale 15-30 units * Bolus insulin * NovoLog per scale ACHS or Q6hrs while NPO * Goal Range: Low 110 mg/dL - High 140 mg/dL * Correction Factor: 25 mg/dL/unit * Nutritional / Prandial insulin per carb ratio of 1 unit per 8 grams CHO consumed
--- NOTE | 2022-11-15 14:21 | Ultrasound Report ---
ULTRASOUND RIGHT UPPER EXTREMITY ARTERIAL CLINICAL HISTORY: Cold fingers with discoloration. COMPARISON STUDY: CT angiogram of the neck dated 11/15/2022. TECHNIQUE: Real-time lopez scale and color Doppler sonography of the arteries of the right upper extre mity is performed from the thoracic outlet to the hand. FINDINGS: The right common carotid artery is patent with normal arterial waveforms and velocities pau suring up to 57 cm/s. The right vertebral artery is patent with antegrade flow. Normal arterial wavef orms are seen in the right subclavian artery with velocities measuring up to 70 cm/s. The axillary an d brachial arteries are patent with normal arterial waveforms. Velocities in the axillary artery rafa ure up to 107 cm/s, common velocities within the brachial arteries measure up to 76 cm/s. The radial and ulnar arteries are patent with velocities measuring up to 54 cm/s. IMPRESSION: There is a sonographic evidence of high-grade stenosis or focal vessel cut off throughout the arteries of the right upper extremity. Dictated: 11/15/2022 12:34 PM Transcribed: 11/15/2022 12:42 PM Og [id number] Electronically signed by: Khanh Martinez M.D. 11/15/2022 2:19 PM
[2022-11-15] MEDS ORDERED: GADOBUTROL 65ML VIAL IV ONE (16:20)
--- NOTE | 2022-11-15 16:48 | Magnetic Resonance Report ---
MRI OF THE BRAIN COMBO CLINICAL HISTORY: Right arm numbness. Difficulty with speech. COMPARISON STUDY: CT of the brain dated 11/15/2022. TECHNIQUE: MRI of the brain was performed utilizing various T1 and T2-weighted sequences in the axial , sagittal, and coronal planes. Contrast-enhanced sequences were acquired following the administratio n of 13 cc of Gadavist. FINDINGS: Brain parenchyma: There is age-related involutional change noting moderate to advanced subcortical an d periventricular microangiopathic disease. There is a 13 mm focus of restricted diffusion centered i n the left thalamus consistent with an acute to subacute lacunar infarct. No additional foci of acute ischemia are identified. There is no hemorrhage or midline shift. There is minimal nonspecific enhan cement at the site of infarct. No enhancing mass lesion is identified on the postcontrast images. No extra-axial fluid collection is seen. The cerebellar tonsils are normal in configuration. Ventricles, sulci, and cisterns: Prominent secondary to involutional change. Pituitary and sella: Unremarkable. Intracranial vasculature: Normal flow voids are maintained at the skull base. Orbits: The bony orbits are grossly intact. Orbital contents are normal in appearance. Sinuses and mastoids: Clear. Calvarium: Unremarkable. Cervical cord: Partially visualized cervical spinal cord is normal in morphology and signal intensity . IMPRESSION: 1. Acute to subacute lacunar infarct centered in the left basal ganglia. 2. No additional foci of acute ischemia are identified. 3. There is no hemorrhage or mass effect. 4. Age advanced microangiopathic change. ACT 112: Negative or not required by law. Electronically signed by: Khanh Martinez M.D. 11/15/2022 4:46 PM
--- NOTE | 2022-11-15 17:27 | XCELERA ---
[id number] \\[email or web address]\[id number]}___[id number].pdf
[2022-11-15] MEDS: ACETAMINOPHEN 325 MG TAB PO PRN (19:39)
--- NOTE | 2022-11-16 | Communication Note ---
Date of Service: November 15, 2022 Saw patient on rounds earlier in the day. She was resting in the chair by the window. She was tearful hearing the news that the MRI brain did indeed confirm a left- sided basal ganglia stroke. We discussed potential etiologies. Patient reports that her speech has improved by about "50%" through the day today. Mild RLE weakness at most. Mild-moderate right arm and right hand weakness. She is left-handed. Was not taking daily aspirin prior to this event. She reports having recent issues with her asthma and dyspnea. She also mentions chronic edema of LEs, worse on left. She previously lived in [place]; moved to [place] 2 years ago. 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 She wasn't certain but she thinks her mother may have lupus?? Labs from today reviewed Imaging from today reviewed including CTA head/neck and MRI brain confirming L- sided basal ganglia CVA Echo - A/P: 1. acute left-sided basal ganglia CVA with resulting dysarthria, right arm/hand weakness, and minimal RLE weakness 2. risk factors for #1 -- DM, HTN, hyperlipidemia; cannot exclude vasculitis 3. CTA head with multiple b/l stenosis and acute appearing occlusions ---> Focal occlusion in the middle M2 segment of the left MCA with distal reconstitution of caliber. Distal narrowing with reconstitution of caliber within some of the other M3 segments on the left. 4. uncontrolled T2DM 5. uncontrolled HTN 6. morbid obesity 7. mild systolic CHF/cardiomyopathy - etiology uncertain, and chronicity uncertain 8. ?vasculitis 9. asthma asa/plavix x 3 weeks, then asa 81mg daily thereafter check lipids am; statin check a1c am pharmacy glycemic team on consult for DM control; appreciate their assistance Dr Sow's consult from neuro appreciated --> he advises vasculitic w/u (ESR, CRP, ROXI, etc) given CTA head findings outpatient 30-day event monitor at discharge PT, OT, speech therapy check TSH am given the cardiomyopathy should see cardiology for ongoing management ideally will need beta waldo in addition to JANE in the future allow 24 hours of permissive HTN then start to gradually bring down BPs stop IV fluids due to mildly low EF and the fact she already has LE edema Stephen Jose MD
[2022-11-16 06:20] LABS: Basophils # (auto) 0.05 K/uL (0-0.2); Basophils % (auto) 0.8 %; Eosinophils # (auto) 0.26 K/uL (0-0.50); Eosinophils % (auto) 4.3 %; Hematocrit (blood only) 39.4 % (37.0-47.0); Hemoglobin 12.7 g/dl (12.0-16.0); Immature Granulocytes # (auto) 0.02 K/uL (0.01-0.20); Immature Granulocytes % (auto) 0.3 %; Lymphocytes # (auto) 1.71 K/uL (1.2-3.4); Lymphocytes % (auto) 28.2 %; Mean Corpuscular Hemoglobin 24.6 pg (25.0-34.0); Mean Corpuscular Hgb Conc 32.2 g/dL (32.0-36.0); Mean Corpuscular Volume 76.4 fL (80.0-100.0); Mean Platelet Volume 10.5 fL (9.4-12.4); Monocytes # (auto) 0.43 K/uL (0.11-0.59); Monocytes % (auto) 7.1 %; Neutrophils # (auto) 3.59 K/uL (1.40-6.50); Neutrophils % (auto) 59.3 %; Platelet Count 233 K/uL (130-400); RDW Coefficient of Variation 13.9 % (11.5-14.5); RDW Standard Deviation 38.2 fL (36.4-46.3); Red Blood Count 5.16 M/uL (4.20-5.40); White Blood Count 6.06 K/ul (4.8-10.8)
[2022-11-16 06:54] LABS: Anion Gap 7 (3-11); Calcium 8.6 mg/dl (8.6-10.3); Carbon Dioxide 28 mmol/L (21-32); Chloride 103 mmol/L (98-107); Potassium 3.7 mmol/L (3.5-5.1); Sodium 138 mmol/L (136-145)
[2022-11-16 07:00] LABS: BUN Creatinine Ratio 26.3 (10-20); Blood Urea Nitrogen 15 mg/dl (6-23); C Reactive Protein 2.38 mg/dl (0-0.5); Chol HDL Ratio 5.1 (0-5); Cholesterol 243 mg/dl (0-200); Est GFR (African American) 123.5 ml/min; Est GFR (Non-African American) 106.6 ml/min; Glucose 243 mg/dl (70-99(Fasting)); HDL Cholesterol 48 mg/dl; LDL Cholesterol Calculated 171 mg/dl; Triglycerides 120 mg/dl (0-150); VLDL Cholesterol 24 mg/dl (0-30)
[2022-11-16] MEDS: ACETAMINOPHEN 325 MG TAB PO PRN ×2 (07:33→14:35)
--- NOTE | 2022-11-16 08:06 | Pharmacy Report ---
- Date of Service November 16, 2022 - Pharmacy CVA/TIA Medication Review Medications to Prevent Stroke handout has been added to the patients discharge packet. Antiplatelet(s) * aspirin 81 mg daily, plavix 75 mg daily * neurology recommends dual antiplatelet therapy on discharge, transition to low dose aspirin monotherapy after 3 weeks Cholesterol * High intensity statin: atorvastatin 40 mg daily DVT Prophylaxis * SCDs ordered Therapeutic Anticoagulation * No history of Afib/Aflutter noted Type 2 Diabetes * A1c 10.9% - Discussed with provider and planning on increasing basal insulin on discharge. Patient recently prescribed trulicity but awaiting prior authorization. Diabetes medications with proven CVD benefit include agents such as GLP-1 agonist or SGLT2 inhibitor are beneficial in stroke patients. * Recommended patient have close follow up outpatient for titration of insulin/adjustments of medications for her diabetes
[2022-11-16 08:18] LABS: Estimated Average Glucose 266 mg/dl; Hemoglobin A1C 10.9 % (4.5-5.6)
[2022-11-16] MEDS: INSULIN ASPART PER UNIT CHARGE SC SCH ×5 (08:21→17:23)
[2022-11-16] MEDS: ATORVASTATIN 40 MG TAB PO SCH (08:42)
[2022-11-16] MEDS ORDERED: LANTUS PER UNIT CHARGE SC SCH (09:00)
[2022-11-16] MEDS ORDERED: FLUTICASONE/VILANTEROL 100/25MCG 14 PUFFS/INHALER INH SCH (09:00)
[2022-11-16] MEDS ORDERED: ASPIRIN 81 MG ECTAB PO SCH (09:00)
[2022-11-16] MEDS ORDERED: CLOPIDOGREL BISULFATE 75 MG TAB PO SCH (09:00)
--- NOTE | 2022-11-16 15:12 | Discharge Summary ---
Date of Service November 16, 2022 Admission HPI Per Admitting Provider Anny Bateman is a 52yo female with HTN, DM and Asthma presenting with right sided weakness. Patient was in her usual state of health until last night. She woke up around 0300 and went to the bathroom and felt normal. She woke again at 04:30 to use the bathroom and felt dizzy and "weird". She had numbness on her right face with drooling and slurred speech. Also with difficulty ambulating due to weakness. She was brought into the ER as a Code Stroke. No tPA administered. She is complaining of headache at this time. She feels that her facial droop is improving. No additional complaints at this time. She specifically denies fever, chills, cough, CP, SOB. Denies abdominal pain, nausea, vomiting, diarrhea or constipation. In the ER she is afebrile, hypertensive, otherwise HD stable ER Course: Plavix 300mg ASA 324mg Principal Diagnosis right sided weakness Discharge Exam General: patient resting comfortably, NAD, non-toxic in appearance, AA&O x 4 Skin: warm, dry, intact, no rashes or lesions HEENT: NC/AT, PERRL, EOMI, anicteric sclera, conjunctiva without injection, external ear normal to inspection and nontender, nares patent, moist mucus membranes, dentition intact, no oropharyngeal lesions, neck supple, trachea midline, no LAD, no thyromegaly, no JVD Heart: +S1/S2, regular, no m/r/g Lungs: equal air entry bilaterally, no rales/rhonchi/wheezes Abd: +BS, soft, NT/ND, no masses/organomegaly/ascites Ext: warm, 2+ pulses in UE/LE bilaterally Neuro: AA&O x 4, speech slurred, right facial droop, CN II-XII grossly intact, sensation to light touch intact, MS in RUE 4/5 with drift, LUE 5/5, RLE 5/5, LLE 5/5 Discharge Data Allergies Allergy/AdvReac Type Severity Reaction Status Date / Time orange Allergy Hives Verified 11/15/22 09:57 peach Allergy Hives Verified 11/15/22 09:57 Consultations 11/15/22 06:13 ED Decision to Admit Stat 11/15/22 09:37 Consult Neurology Routine Ordered Studies MRI OF THE BRAIN COMBO CLINICAL HISTORY: Right arm numbness. Difficulty with speech. COMPARISON STUDY: CT of the brain dated 11/15/2022. TECHNIQUE: MRI of the brain was performed utilizing various T1 and T2-weighted sequences in the axial, sagittal, and coronal planes. Contrast-enhanced sequences were acquired following the administration of 13 cc of Gadavist. FINDINGS: Brain parenchyma: There is age-related involutional change noting moderate to advanced subcortical and periventricular microangiopathic disease. There is a 13 mm focus of restricted diffusion centered in the left thalamus consistent with an acute to subacute lacunar infarct. No additional foci of acute ischemia are identified. There is no hemorrhage or midline shift. There is minimal nonspecific enhancement at the site of infarct. No enhancing mass lesion is identified on the postcontrast images. No extra-axial fluid collection is seen. The cerebellar tonsils are normal in configuration. Ventricles, sulci, and cisterns: Prominent secondary to involutional change. Pituitary and sella: Unremarkable. Intracranial vasculature: Normal flow voids are maintained at the skull base. Orbits: The bony orbits are grossly intact. Orbital contents are normal in appearance. Sinuses and mastoids: Clear. Calvarium: Unremarkable. Cervical cord: Partially visualized cervical spinal cord is normal in morphology and signal intensity. IMPRESSION: 1. Acute to subacute lacunar infarct centered in the left basal ganglia. 2. No additional foci of acute ischemia are identified. 3. There is no hemorrhage or mass effect. 4. Age advanced microangiopathic change. ACT 112: Negative or not required by law. [place], [place] [phone] CT Scan Report Patient:ANNY BATEMAN Admit Date:11/15/22 MR#:[id number] Address1: Acct ID:[id number] Address2: Date:1970 [facility] Zip: Age:52 Location:ED Sex:F Room/Bed: Att Phy: Diagnosis:Stroke Barbra Phy:PCP,NO Service Date:11/15/22 Fam Phy: Interpreting Phy:David Duncan MDAdmit Phy: Ordering Phy:Rosalinda Mosquera D.O. cc: ~ ADDENDUM ADDENDUM: 11/15/22 06:09 Call Doctor Regarding Stroke, called Dr. Mosquera on 11/15 06:09 (-04:00) Electronically signed by: David Duncan M.D. Electronically signed by: David Duncan M.D. 11/15/22 06:00 AM ADDENDUM END Exam(s): CTA NECK With Contrast IV Amt: 120 ML EXAM: CT Angiography Neck With Intravenous Contrast CLINICAL HISTORY: Reason for exam: neuro deficit, acute stroke suspected. TECHNIQUE: Routine carotid CT angiography protocol was performed with intravenous contrast. NASCET criteria using the distal ICAs for comparison were used for evaluation of stenoses. Automated exposure control was utilized for the study. A dose lowering technique was utilized adhering to the principles of ALARA. MIP reconstructed images were created and reviewed. CONTRAST: Patient received 120 ML of IV contrast COMPARISON: None. FINDINGS: VASCULATURE: Right common carotid artery: No occlusion or significant stenosis. No dissection. Right internal carotid artery: Extracranial segment is patent with no occlusion or significant stenosis. No dissection. Right external carotid artery: Unremarkable. No occlusion. Right vertebral artery: No occlusion or significant stenosis. No dissection. Left common carotid artery: No occlusion or significant stenosis. No dissection. Left internal carotid artery: Extracranial segment is patent with no occlusion or significant stenosis. No dissection. Left external carotid artery: Unremarkable. No occlusion. Left vertebral artery: No occlusion or significant stenosis. No dissection. NECK: Bones/joints: Multilevel cervical spondylosis. Soft tissues: No acute findings. Thyroid: 2.6 cm nodule in the right thyroid lobe. Nonemergent ultrasound suggested to further evaluate. Lung apices: Prominent pulmonary vein in the right lung apex . [facility], [phone] CT Scan Report Patient: Radha BATEMAN Date: 11/15/22#: [id number]: [id number] NICO[address] DRAcct ID:[id number]: Date: 1970[facility] Zip: [place], [place] [address]Zub: 52Location: EDSex: FRoom/Bed:Att Phy:Diagnosis: StrokePri Phy: PCP,NOService Date: 11/15/22[facility] Phy:Interpreting Phy: David Duncan MDAdmit Phy: Ordering Phy: Rosalinda Mosquera D.O. cc: ~ ADDENDUM ADDENDUM: 11/15/22 06:[address] Stratton on 11/15 06:39 (-04:00) Electronically signed by: David Duncan M.D. Electronically signed by: David Duncan M.D. 11/15/22 06:05 AM ADDENDUM END ADDENDUM ADDENDUM: 11/15/22 06:10 Call Doctor Regarding Stroke, called Dr. Mosquera on 11/15 06:10 (-04:00) Electronically signed by: David Duncan M.D. Electronically signed by: David Duncan M.D. 11/15/22 06:05 AM ADDENDUM END Exam(s): CTA HEAD With Contrast IV Amt: 120 ML EXAM: CT Angiography Head With Intravenous Contrast CLINICAL HISTORY: Reason for exam: neuro deficit, acute stroke suspected. TECHNIQUE: Axial computed tomographic angiography images of the head with intravenous contrast. Automated exposure control was utilized for the study. A dose lowering technique was utilized adhering to the principles of ALARA. MIP reconstructed images were created and reviewed. CONTRAST: Patient received 120 ML of IV contrast COMPARISON: Recently performed CT head. FINDINGS: Right internal carotid artery: Mild atherosclerosis. Intracranial segment is patent with no significant stenosis. No aneurysm. Right anterior cerebral artery: Multifocal short segment severe stenosis with distal reconstitution of caliber within the A2 and A3 segments of the bilateral ACAs. No aneurysm. Right middle cerebral artery: No occlusion or significant stenosis. No aneurysm. Right posterior cerebral artery: No occlusion or significant stenosis. No aneurysm. Right vertebral artery: Unremarkable as visualized. Left internal carotid artery: Mild atherosclerosis. Intracranial segment is patent with no significant stenosis. No aneurysm. Left anterior cerebral artery: See above. Left middle cerebral artery: Focal occlusion in the middle M2 segment of the left MCA with distal reconstitution of caliber. Distal narrowing with reconstitution of caliber within some of the other M3 segments on the left. No aneurysm. Left posterior cerebral artery: No occlusion or significant stenosis. No aneurysm. Left vertebral artery: Unremarkable as visualized. Basilar artery: No occlusion or significant stenosis. No aneurysm. IMPRESSION: Focal occlusion in the middle M2 segment of the left MCA with distal reconstitution of caliber. Distal narrowing with reconstitution of caliber within some of the other M3 segments on the left. Additional multifocal stenosis in the bilateral ACAs. Correlation for underlying vasculitic phenomena suggested. ULTRASOUND RIGHT UPPER EXTREMITY ARTERIAL CLINICAL HISTORY: Cold fingers with discoloration. COMPARISON STUDY: CT angiogram of the neck dated 11/15/2022. TECHNIQUE: Real-time lopez scale and color Doppler sonography of the arteries of the right upper extremity is performed from the thoracic outlet to the hand. FINDINGS: The right common carotid artery is patent with normal arterial waveforms and velocities measuring up to 57 cm/s. The right vertebral artery is patent with antegrade flow. Normal arterial waveforms are seen in the right subclavian artery with velocities measuring up to 70 cm/s. The axillary and brachial arteries are patent with normal arterial waveforms. Velocities in the axillary artery measure up to 107 cm/s, common velocities within the brachial arteries measure up to 76 cm/s. The radial and ulnar arteries are patent with velocities measuring up to 54 cm/s. Communications: Call Doctor Stroke Electronically signed by: David Duncan M.D. 11/15/22 06:05 AM 11/15/22 05:21 CT head/brain wo con Stat 11/15/22 05:30 CT angio head w con Stat CT angio neck with con Stat 11/15/22 09:37 MR brain wo/w con Routine US arterial duplex UE RT Routine Diabetes Follow up Diabetes Follow-up Needed for HgbA1c >9% Hospital Course (1) Right sided weakness: 52yo left handed female last normal at 11/15/22 at 03:00 presenting with headache, right sided facial droop and weakness in RUE and RLE. Patient hypertensive, otherwise stable. Labs are significant for hyperglycemia. CT findings as above - noted to have a focal occlusion in the middle M2 segment of the left MCA with distal reconstitution of caliber. Distal narrowing with reconstitution of caliber within some of the other M3 segments on the left. Case discussed with Tele-stroke Neurologist who reports discussing the CTA findings with on-call interventional neurologist. No intervention on middle M2 occlusion at this time. Patient loaded with ASA and Plavix Completed brain MRI, echocardiogram. LDL is elevated, will increase atorvastatin. Continue with dual antiplatelet therapy consisting of aspirin 81 mg/day and clopidogrel 75 mg/day. Because she has not been on antiplatelet therapy, would recommend transitioning to daily low-dose aspirin monotherapy after 3 weeks. Permissive hypertension appropriate acutely, systolic blood pressure goal 140 to 160 mmHg. (Long-term blood pressure goal less than 130/80.) Given possibility of vasculitis as suggested on CT angiography, would also check inflammatory markers including ESR, CRP, ROXI screen, ANCA, complement levels. If positive would need follow-up with rheumatology. will defer to PCP. Consider obtaining 30-day mobile cardiac outpatient telemetry. Will defer to PCP. -Continue ASA 81mg PO daily -Continue Plavix 75mg PO daily -Continue Atorvastatin 40mg PO daily -Neurology consultation appreciated; (2) Asthma: Chronic. No cough/SOB or wheeze -Continue home Symbicort (3) Diabetes: Elevated blood sugar on arrival - patient does not take her insulin as prescribed. -Lantus 12u BID -ISS -Pharmacy Glycemic management consult appreciated (4) Hypertension: Blood pressure presently 151/62 -Held Lisinopril to allow for permissive HTN will rresume at discharge. Cool right fingers reported by nursing -Check RUE arterial doppler: appears normal on description. Thyroid nodule in the right lobe -Non-emergent ultrasound when acute issues resolve Total Time Total Time Spent Total Time Spent (In Minutes): 32 Discharge Plan Discharge Items Patient Disposition: Home - Self-Care Reason For Visit: RIGHT FACIAL DROOP Discharge Diagnosis: stroke Activity: Resume your previous activity Non-emergency contact: Primary Care Provider Call non-emergency contact if: you have any medication questions Follow-up/Referrals: PCP,NO [Primary Care Provider] - Diet: Carb Consistent or DM2 Addtl Attending Provider Instructions: Good afternoon Mrs. Bateman Sadly it appears you suffered a stroke. When a stroke occurs, you have irreversible loss of brain tissue. This can be caused by a lack of blood flow to brain caused by either bleeding or a blockage in an artery. To help decrease the risk of getting a stroke, we would need to work on decreasing your risk factors. The biggest risk factors you have your diabetes. Uncontrolled diabetes is a silent killer. We will need to make sure you followup with your PCP in 1-2 weeks. You may also need followup with rheumatology but will defer this to your PCP. Please take aspirin daily. You will also take plavix with the aspirin, but only for 3 weeks. After the 3 weeks only only take aspirin. Below is some information of stroke risk factors, when to call 911 and diabetic diet information. Risk Factors for Stroke: You can reduce your chances of stroke by working with your medical provider to adopt a healthy lifestyle. Some specific ways to lower your chance of stroke are: * If you are a smoker, now is the time to stop smoking cigarettes * If you are diabetic, improve the control of your blood sugars * Avoid excessive amounts of alcohol * Control high blood pressure * Lose weight if you are overweight * Be sure to lead an active lifestyle * Eat a healthy diet low in salt, cholesterol and fat You should know about other risk factors for stroke that you are unable to control. These include: * Age 55 years or older * Male gender * Certain racial groups: , or / * Family History of Stroke, Mini stroke or Heart Attack * Sickle Cell Disease Follow Up: It is important for you to keep your follow up appointments with your medical provider. Who to Call and When: Medical Emergencies: Call 911 immediately if you experience any of the following warning signs and symptoms of Stroke: * Sudden numbness or weakness of the face, arm or leg, especially on one side of the body * Sudden confusion, trouble speaking or understanding * Sudden trouble seeing in one or both eyes * Sudden trouble walking, dizziness, loss of balance or coordination * Sudden severe headache with no cause Do not delay calling 911 if you experience any warning signs or symptoms of a stroke. Delay in seeking medical attention may affect what treatments can be given to you. . Here's a patient education guide for a diabetic diet for individuals with type 2 diabetes: 1. Understand the importance of a diabetic diet: A diabetic diet plays a crucial role in managing blood sugar levels and overall health for individuals with type 2 diabetes. It focuses on balanced eating and portion control to help maintain stable blood sugar levels. 2. Choose nutrient-dense foods: Opt for foods that are rich in nutrients and low in added sugars, unhealthy fats, and refined carbohydrates. Include a variety of fruits, vegetables, whole grains, lean proteins, and healthy fats in your meals. 3. Carbohydrate counting: Learn about carbohydrates and how they affect blood sugar levels. Carbohydrates have the most significant impact on blood sugar levels, so it's important to monitor their intake. Work with a registered dietitian to learn carbohydrate counting techniques. 4. Portion control: Be mindful of portion sizes to avoid overeating. Use measuring cups, a food scale, or visual cues to help estimate appropriate portions. Eating smaller, frequent meals throughout the day can also help stabilize blood sugar levels. 5. Focus on fiber: Incorporate high-fiber foods like whole grains, legumes, fruits, and vegetables into your diet. Fiber aids in digestion, helps control blood sugar levels, and promotes a feeling of fullness. 6. Limit added sugars: Avoid or minimize foods and beverages with added sugars such as soda, sweets, desserts, and sugary snacks. Be cautious of hidden sugars in processed foods by reading labels and choosing products with no or low added sugars. 7. Healthy fats: Include healthy fats in moderation, such as avocados, nuts, seeds, and olive oil. These fats can help with satiety and promote heart health. 8. Regular mealtimes: Establish regular meal and snack times to maintain consistent blood sugar levels throughout the day. Avoid skipping meals, as it can lead to blood sugar imbalances. 9. Stay hydrated: Drink plenty of water throughout the day to stay hydrated and support overall health. Limit sugary beverages and opt for water, herbal tea, or unsweetened beverages instead. 10. Monitor blood sugar levels: Check your blood sugar levels regularly as directed by your healthcare provider. This will help you understand how different foods affect your levels and guide your dietary choices. Remember, it's crucial to work with a registered dietitian or healthcare provider to develop an individualized meal plan that meets your specific needs. They can provide personalized guidance, assist with meal planning, and answer any questions you may have about your diabetic diet. Pending Studies at Discharge: No Stand-Alone Forms: My [facility] [employer], Smoking Cessation Medications and DC Order Prescriptions: New clopidogrel 75 mg Tablet 75 mg PO QAM Qty: 21 0RF aspirin 81 mg Tablet,Delayed Release (Dr/Ec) 81 mg PO DAILY Qty: 30 0RF insulin glargine [Lantus U-100 Insulin] 100 unit/mL Solution 30 unit SC DAILY Qty: 10 0RF amlodipine 2.5 mg tablet 2.5 mg PO PM Qty: 30 0RF metformin 500 mg tablet extended release 24 hr 500 mg PO PM Qty: 30 0RF Rx Instructions: take on a full stomach Continued lisinopril 20 mg tablet 20 mg PO DAILY budesonide-formoterol 160-4.5 mcg/actuation HFA aerosol inhaler 2 puff INHALATION BID Changed atorvastatin 40 mg tablet 80 mg PO DAILY Qty: 60 0RF Discharge Orders: Discharge Order (Routine); Ordered 11/16/22 Ordered By: Colton Dumont Admission Data Admit Date/Time: 11/15/22 07:01 Attending Provider: Colton Dumont Admit Provider: Laxmi Salomon Primary Care Provider: PCP,NO Other Providers: Laxmi Salomon ; yKle Sow Coding Level of Care Code 25580 INP/OBS DISCH >30 MIN Diagnoses Right sided weakness R53.1 Asthma J45.909 Diabetes E11.9 Hypertension I10
[2022-11-16] MEDS ORDERED: STROKE PATIENT DISCHARGE STA (16:42)
--- NOTE | 2022-11-17 07:06 | Electrocardiogram Report ---
Test Reason : Blood Pressure : / mmHG Vent. Rate : 086 BPM Atrial Rate : 086 BPM P-R Int : 152 ms QRS Dur : 100 ms QT Int : 416 ms P-R-T Axes : 052 046 051 degrees QTc Int : 497 ms Normal sinus rhythm Prolonged QT Abnormal ECG No previous ECGs available Confirmed by Lorenzo Galicia ([id number]) on 11/17/2022 7:05:39 AM Referred By: NO PCP Confirmed By:Lorenzo Galicia
[2022-11-17] MEDS ORDERED: LANTUS PER UNIT CHARGE SC SCH (09:00)
--- NOTE | 2022-11-18 10:15 | Pharmacy Report ---
Pharmacist Stroke Counseling - Date of Service November 18, 2022 - Scope: Pharmacy has been consulted to provide medication discharge counseling for this patient admitted with ischemic stroke as per the Pharmacist Discharge Counseling for Stroke Patients Protocol. - Medications on Discharge: Home Medications Medication Instructions Recorded Confirmed budesonide-formoterol HFA 160 2 puff inhalation BID 11/15/22 11/15/22 mcg-4.5 mcg/actuation aerosol inhaler lisinopril 20 mg tablet 20 mg PO DAILY 11/15/22 11/15/22 New Rx's Medication Instructions Recorded amlodipine 2.5 mg tablet 2.5 mg PO PM #30 tabs 11/16/22 aspirin 81 mg tablet,delayed 81 mg PO DAILY #30 tabs 11/16/22 release atorvastatin 40 mg tablet 80 mg PO DAILY #60 tabs 11/16/22 clopidogrel 75 mg tablet 75 mg PO QAM #21 tabs 11/16/22 insulin glargine 100 unit/mL 30 unit (0.3 mL) SC DAILY #10 mL 11/16/22 subcutaneous solution (Lantus U-100 Insulin) metformin 500 mg tablet,extended 500 mg PO PM #30 tabs 11/16/22 release 24 hr - Action: The above medications, specifically ones for stroke treatment/prophylaxis, have been reviewed in detail with the patient and/or patient provider service representative(s) prior to discharge. This includes indication, common adverse reactions, drug interactions, and medication administration. Medication counseling has been employed using the teach-back method to ensure understanding. - Outcome: The patient and/or patient provider service representative(s) have demonstrated understanding of the medications. Additional comments: - Patient was able to machine pecan picker prescriptions - Reiterated that she will take aspirin along with clopidogrel for 21 days (until bottle is empty) and then aspirin ongoing (likely lifelong, or until told otherwise) - Patient states that she monitors blood pressure at home and will continue to do so with medication changes Thank you for allowing pharmacy to be involved in the care of this patient. Ple ase call [phone] with any additional questions
== END 2022-11-16 18:22 | disposition home or self-care (01) | DRG 65 ==
LOC: ED 05:13 → MERGE 07:01 → 2S 07:01 → SUATTDRO 07:01 → 2S 08:25
DX: I63.512 Cerebral infarction due to unspecified occlusion or stenosis of left middle cerebral artery; I77.6 Arteritis, unspecified; R47.1 Dysarthria and anarthria; Z91.148 Patient's other noncompliance with medication regimen for other reason; G81.91 Hemiplegia, unspecified affecting right dominant side; J45.909 Unspecified asthma, uncomplicated; R29.810 Facial weakness; E66.01 Morbid (severe) obesity due to excess calories; I10 Essential (primary) hypertension; E11.65 Type 2 diabetes mellitus with hyperglycemia

== ENCOUNTER 2023-09-05 08:45 | Inpatient (IN) ==
--- OUTSIDE RECORDS SUMMARY | 2023-09-05 08:52 | External Medical Summary | Continuity of Care Document ---
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 Role Phone Cheli Charles Primary Care Physician [phone] Encounter [facility] [id number] Date(s): 06/28/23 - 06/28/[address] [place] [address], [address] [place] [address] [place] [phone] Encounter Diagnosis Body mass index [BMI] 50.0-59.9, adult(Discharge Diagnosis) - 06/28/23 Hyperlipidemia(Discharge Diagnosis) - 06/28/23 Hypertension(Discharge Diagnosis) - 06/28/23 Type 2 diabetes mellitus(Discharge Diagnosis) - 06/28/23 Loose body in knee(Discharge Diagnosis) - 06/28/23 Patellofemoral arthritis(Discharge Diagnosis) - 06/28/23 Asthma(Discharge Diagnosis) - 06/28/23 Mass of arm(Discharge Diagnosis) - 06/28/23 Hyperlipidemia, unspecified(Final) - Essential (primary) hypertension(Final) - Type 2 diabetes mellitus without complications(Final) - Discharge Disposition: Home or Self Care Attending Physician: DO Charles Mehwish Referring Physician: DO Charles Mehwish Allergies, Adverse Reactions, Alerts No Known Medication Allergies Substance Reaction Severity Status peaches itchy sore throat hives Active oranges hives sore throat. itchy Active Assessment and Plan Extracted from: Title:Office Visit Note Author:DO Charles Me hwish Date:06/28/23 1.Hyperlipidemia Lipid panel collected today, patient currently on high intensitystatin atorvastatin 80 mg daily. May need additional medication ifLDL is not below 70. 2.Hypertension Not well-controlled, elevated diastolicblood pressure. Will increase dose of lisinopril to 40 mg daily. She was advised to take2 tablets of lisinopril 20 mg daily until she runs out. New prescription was sent in for lisinopril 40 mg daily. CMP collected today. Recommend continuing amlodipineat current dose. 3.Type 2 diabetes mellitus Based onblood glucoselevels that are reported does not appear to be well-controlled. She did not complete labs prior to her appointment today. Hemoglobin [id number] at visit today. Discussed how to use the tayla sensoras she did pick it up from the pharmacy but has not started using it. Will follow-up onLantus dose once hemoglobin A1c resultsare received. 4.Loose body in knee 5.Patellofemoral arthritis X-rays of the right kneewere reviewed with the patient. There is alarge loose bodynotedas well as patellofemoral arthritisand joint space narrowing with osteophytes. For symptomatic relief recommend use of topical Voltaren gel which she can use up to 4 times per day. Okay to continue use of Tylenol for pain relief. New order placed for physical therapy. If her pain does not improve with physical therapy,discussed possibleinjection (this would depend on what her recent hemoglobin A1c level is if she would be a candidate for cortisoneversus hyaluronic acidinjection) additionallydiscussed that if her joint line tenderness improves but she has tenderness over this area where the loose body is presentmay benefit from surgical consultation. Patient will be scheduled for 3-month follow-up appointmentwith Dr. Angela. Time: 36 mins 4- pre-visit chart review 24- visit, inclusive of history, exam, and discussion of assessment/plan 8- post-visit documentation/orders/coordination of care Immunizations Given and Recorded Vaccine Date Status Refusal Reason zoster vaccine, inactivated 1 04/22/23 Given zoster vaccine, inactivated 2 02/17/23 Given influenza virus vaccine, inactivated 02/08/23 Give n influenza virus vaccine, inactivated 02/19/22 Give n 1Result Comment: Adjuvant Suspension Component 457TK exp 01/06/2025 2Result Comment: AP94E 12/30/24 Medications acetaminophen 500 mg oral capsule Start: 02/24/22 13:58:00 EDT, 1 cap, PO, q6h, Disp# 90 cap, Refills: 1, PRN: as needed for pain, Pharmacy: [facility] #[id number] Start Date: 02/24/22 Status: Ordered Albuterol (Eqv-ProAir HFA) 90 mcg/inh inhalation aerosol Start: 06/28/23 9:19:00 EST, 2 puff, inhaled, q4h, Disp# 6.7 g, Refills: 3, Pharmacy: [facility]/pharmacy #[id number] Start Date: 06/28/23 Status: Ordered amLODIPine 2.5 mg oral tablet Start: 06/28/23 9:20:00 EST, 1 tab, PO, Daily, Disp# 90 tab, Refills: 3, Pharmacy: [facility]/pharmacy #[id number] Start Date: 06/28/23 Status: Ordered aspirin 81 mg oral delayed release tablet Start: 11/26/22 14:07:00 EDT, 1 tab, PO, Daily, Disp# 90 tab, Refills: 3, Pharmacy: [facility] #[id number] Start Date: 11/26/22 Status: Ordered atorvastatin 80 mg oral tablet Start: 11/26/22 14:08:00 EDT, 1 tab, PO, Daily, Disp# 90 tab, Refills: 3, Pharmacy: [facility] #[id number] Start Date: 11/26/22 Status: Ordered BD 1 mL Ultra-Fine II Short Insulin Syringe 31G x 5/16" Start: 11/18/22 10:48:00 EDT, See Instructions, Disp# 200 each, Use as directed with insulin. Max 2/day. Use new insulin syringe with each injection., Pharmacy: [facility] #[id number] Start Date: 11/18/22 Status: Ordered BD needle Ultra-Fine III Short Pen 31G x 8 mm Start: 02/24/22 14:05:00 EDT, See Instructions, Disp# 200 each, Use to inject lantus., Pharmacy: [facility] #[id number] Start Date: 02/24/22 Status: Ordered BD needle Ultra-Fine Pen Shanae 32G x 4mm Start: 11/18/22 10:48:00 EDT, See Instructions, Disp# 200 each, Use as directed with insulin. Max 2/day. Use new pen needle with each injection., Pharmacy: [facility] #[id number] Start Date: 11/18/22 Status: Ordered ezetimibe 10 mg oral tablet Start: 06/30/23 11:24:00 EST, 1 tab, PO, Daily, Disp# 90 tab, Refills: 3, Pharmacy: [facility] #[id number] Start Date: 06/30/23 Status: Ordered FreeStyle (28G) Lancets Start: 02/24/22 14:05:00 EDT, See Instructions, Disp# 200 each, Use to test blood glucose each morning-fasting., Pharmacy: [facility] #[id number] Start Date: 02/24/22 Status: Ordered FreeStyle Tayla 2 - 14 day reader Start: 03/25/23 14:35:00 EST, See Instructions, Disp# 1 applicator, Refills: 0, Tayla reader, Pharmacy: [facility] #[id number] Start Date: 03/25/23 Status: Ordered FreeStyle Tayla 2 - 14 day sensor Start: 03/25/23 14:35:00 EST, See Instructions, Disp# 3 kit, Refills: 4, Use to check blood glucose. Change every 14 days, Pharmacy: [facility] #[id number] Start Date: 03/25/23 Status: Ordered FREESTYLE TAYLA 2 READER Start: 06/07/23 12:10:00 EST, FREESTYLE TAYLA 2 READER, eRx Product Type: Supply, See Instructions,Disp# 4 each, Refills: 3, USE CONTINUOUSLY TO MONITOR BLOOD SUGARS DAILY, Pharmacy [facility]/pharmacy #[id number] Start Date: 06/07/23 Status: Ordered FreeStyle Lite Glucose Monitor Start: 02/24/22 14:05:00 EDT, See Instructions, Disp# 1 each, Use to test blood glucose, Pharmacy: [facility] #[id number] Start Date: 02/24/22 Status: Ordered FreeStyle Lite Test Strips 100 ct Start: 12/24/22 15:46:00 EDT, See Instructions, Disp# 200 each, Refills: 3, Use to test blood glucose each morning., Pharmacy: [facility] #[id number] Start Date: 12/24/22 Status: Ordered ketoconazole 2% topical cream Start: 02/08/23 11:03:00 EDT, 1 appl, topical, Daily, Disp# 30 g, Refills: 0, Pharmacy: [facility] #[id number] Start Date: 02/08/23 Status: Ordered Lantus Solostar Pen 100 units/mL subcutaneous solution Start: 11/26/22 14:09:00 EDT, 30 unit =, subQ, Daily, Disp# 15 mL, Refills: 3, Note to Pharmacy: patient when call when needs refill, Pharmacy: [facility] #[id number] Start Date: 11/26/22 Status: Ordered lisinopril 40 mg oral tablet Start: 06/28/23 9:21:00 EST, 1 tab, PO, Daily, Disp# 90 tab, Refills: 3, Pharmacy: [facility]/pharmacy #[id number] Start Date: 06/28/23 Status: Ordered MetFORMIN (Eqv-Glucophage XR) 500 mg oral tablet, extended release take 1 tablet by mouth every evening with dinner Start Date: 11/26/22 Status: Ordered Symbicort 160 mcg-4.5 mcg/inh inhalation aerosol Start: 06/28/23 9:19:00 EST, 2 puff, inhaled, bid, Disp# 3 each, Refills: 3, Pharmacy: [facility]#[id number] Start Date: 06/28/23 Status: Ordered Vitamin D3 2000 intl units (50 mcg) oral capsule Start: 02/24/22 13:59:00 EDT, 1 cap, PO, Daily, Disp# 90 cap, Refills: 1, Pharmacy: [facility] #[id number] Start Date: 02/24/22 Status: Ordered Problem List Condition Confirmation Course Effective Dates Status H ealth Status Informant Asthma Confirmed Active Hyperlipidemia Confirmed Active Hyperplastic polyp of sigmoid colon Confirmed Active Hypertension Confirmed Active Moderate obstructive sleep apnea Confirmed Active Thyroid nodule incidentally noted on imaging study Confirmed Active Tobacco user Confirmed Active Tubular adenoma of colon Confirmed Active Type 2 diabetes mellitus Confirmed Active Diagnosis Diagnosis Type Effective Dates Health Status Clinical Service Informant Loose body in knee Discharge Diagnosis 06/28/23 Mass of arm Discharge Diagnosis 06/28/23 Non-Specified Asthma Discharge Diagnosis 06/28/23 Non-Specified Body mass index [BMI] 50.0-59.9, adult Discharge Diagnosis 06/28/23 Non-Specified Patellofemoral arthritis Discharge Diagnosis 06/28/23 Hyperlipidemia Discharge Diagnosis 06/28/23 Hypertension Discharge Diagnosis 06/28/23 Type 2 diabetes mellitus Discharge Diagnosis 06/28/23 Procedures Procedure Date Related Diagnosis Body Site Status Colonoscopy 1 05/28/22 Completed 1Two 3-4mm polyps in the transverse colon, removed with cold snare, resected and retreived one 3mm polup in the descending colon, removed w/ cold snare, resected and retrieved one 3mm polup in the sigmoid colon, removed w/ cold snare, resected and retrieved diverticulosis in the sigmoid colon non-bleeding internal hemorroids Results Laboratory List Name Date Comprehensive Metabolic Panel (COMP META B PANEL) 06/28/23 Hemoglobin A1C (HEMOGLOBIN, A1C) 06/28/23 Lipid Profile (LIPOPROTEINS) 06/28/23 Most recent to oldest [Reference Range]: 1 eGFR CKD-EPI [>60 mL/min/1.73 m2] >90 mL /min/1.73 m2 1 (06/28/23 12: PM) Estimated Average Glucose 321 mg/dL 2 (06/28/23: PM) Non-HDL 203 mg/dL 3 (06/28/23 PM) Estimated CrCl 138.51 mL/min (06/28/23 12:58 PM) Anion Gap [5-14 mmol/L] 8 mmol/L (06/28/23 PM) Alb [3.5-5.0 g/dL] 3.9 g/dL (06/28/23 PM) Alk Phos [38-126 unit/L] 113 unit/L (06/28/23: PM) ALT [<35 unit/L] 15 unit/L (06/28/23: PM) AST [15-46 unit/L] 22 unit/L (06/28/23: PM) BUN [7-20 mg/dL] 10 mg/dL (06/28/23 PM) Ca [8.4-10.2 mg/dL] 9.2 mg/dL (06/28/23: PM) Chol/HDL 5 (06/28/23 PM) Chol [125-200 mg/dL] 251 mg/dL *HI* (06/28/23 PM) Cl- [96-107 mmol/L] 101 mmol/L (06/28/23 PM) HCO3 [22-30 mmol/L] 29 mmol/L (06/28/23 PM) Cret [0.60-1.00 mg/dL] 0.63 mg/dL (06/28/23 PM) HbA1c [4.0-6.0 %] 12.8 % *HI* (06/28/23 PM) Glu [74-106 mg/dL] 325 mg/dL *HI* (06/28/23 PM) HDL [>35 mg/dL] 48 mg/dL (06/28/23 PM) K [3.5-5.1 mmol/L] 3.6 mmol/L (06/28/23 PM) LDL Chol, Calculated [50-130 mg/dL] 160 mg/dL *HI* (06/28/23 PM) Na [137-145 mmol/L] 138 mmol/L (06/28/23 PM) T Bili [0.2-1.3 mg/dL] 0.5 mg/dL (06/28/23 PM) Prot [6.3-8.2 g/dL] 7.2 g/dL (06/28/23 PM) TG [<200 mg/dL] 216 mg/dL *HI* (06/28/23 PM) 1Result Comment: Testing Performed By: Dept of Pathology [facility] Feliciano Cooper, [address] [place] [id number] 2Result Comment: Testing Performed By: Dept of Pathology [facility] Feliciano Cooper, [address] [place] [address], [place] [address] 3Result Comment: Testing Performed By: Dept of Pathology [facility] Feliciano Cooper, [address] [place] [address], [place] [address] Vital Signs Most recent to oldest [Reference Range]: 1 Height 161.2 cm (06/28/23 8:44 AM) Patient Weight 132.2 kg (06/28/23 8:44 AM) Body Mass Index 50.87 kg/m2 (06/28/23 8:44 AM) Temperature [36.5-37.9 DegC] 35.9 DegC *LOW* (06/28/23 8:44 AM) Heart Rate 100 bpm (06/28/23 8:44 AM) Respiratory Rate 16 br/min (06/28/23 8:44 AM) Blood Pressure 130/100mmHg (2/12/24 8:44 AM) Social History Social History Type Response Smoking Status Never smoked cigaret jerry Sex FCM Outpt Note * Frantzyamelissa , Cheli: PERFORM Event Display: FCM Outpt Note Authored Date: [id number] Chief Complaint right knee pain not improving History of Present Illness Angie is a 53-year-old femalewho presents for follow-upof several concerns. Right knee pain 6/10. Intermittent. Not worse with rest or activity. Completed to XRs- loose body. Doesn't recall being advised to go to PT. Hypertension- lisinopril 124/114. - has been high - has been taking amlodipine, lisinopril - headaches in the AM, Tylenol helps - 3x/week headache - continues to work through it Diabetes - Lantus 33u, metformin 500mg daily - Picked up tayla sensor but hasn't started using it - glucose- 211 after breakfast, 224 day prior, hasn't checked today [employer] - did a telehealth - no follow-up in person - does not recall what recommendations provided Physical Exam Vitals & Measurements T:35.9C HR:100(Monitored) RR:16 BP:130/100 SpO2:98% HT:161.2cm WT:132.200kg(Dosing) WT:132.2kg BMI:50.87 GENERAL APPEARANCE: The patient is alert, oriented and in no acute distress. HEENT: Head is normocephalic/atraumatic. LUNGS: Respirations even and unlabored. EXTREMITIES: No cyanosis, clubbing or edema. NEUROLOGICAL: Grossly non-focal exam. SKIN: Warm and dry without any rash. MUSCULOSKELETAL: _ Right knee:There is tenderness to palpation over thepatellofemoralspaceas well as the medial joint line. There is also tenderness to palpationlateral to the patellar tendonin the region of loose body. Active range of motion 0-90 degrees. Diagnostic Results XR right knee reviewed. Assessment/Plan 1.Hyperlipidemia Lipid panel collected today, patient currently on high intensitystatinatorvastatin 80 mg daily. May need additional medication ifLDL is not below 70. 2.Hypertension Not well-controlled, elevated diastolicblood pressure. Will increase dose of lisinopril to 40 mg daily. She was advised to take2 tablets of lisinopril 20 mg daily until she runs out. New prescription was sent in for lisinopril 40 mg daily. CMP collected today. Recommend continuing amlodipineat current dose. 3.Type 2 diabetes mellitus Based onblood glucoselevels that are reported does not appear to be well- controlled. She did not complete labs prior to her appointment today. Hemoglobin [id number] at visit today. Discussed how to use the tayla sensoras she did pick it up from the pharmacy but has not started using it. Will follow-up onLantus dose once hemoglobin A1c resultsare received. 4.Loose body in knee 5.Patellofemoral arthritis X-rays of the right kneewere reviewed with the patient. There is alarge loose bodynotedaswell as patellofemoral arthritisand joint space narrowing with osteophytes. For symptomatic relief recommend use of topical Voltaren gel which she can use up to 4 times per day. Okay to continue use of Tylenol for pain relief. New order placed for physical therapy. If her pain does not imp rove with physical therapy,discussed possibleinjection (this would depend on what her recent hemoglobin A1c level is if she would be a candidate for cortisoneversus hyaluronic acidinjection) additionallydiscussed that if her joint line tenderness improves but she has tenderness over this area where the loose body is presentmay benefit from surgical consultation. Patient will be scheduled for 3-month follow-up appointmentwith Dr. Angela. Time: 36 mins 4- pre-visit chart review 24- visit, inclusive of history, exam, and discussion of assessment/plan 8- post-visit documentation/orders/coordination of care Problem List/Past Medical History Ongoing Asthma Hyperlipidemia Hyperplastic polyp of sigmoid colon Hypertension Moderate obstructive sleep apnea Thyroid nodule incidentally noted on imaging study Tobacco user Tubular adenoma of colon Type 2 diabetes mellitus Historical Mass of arm Procedure/Surgical History Colonoscopy (05/28/2022) Medications acetaminophen(acetaminophen 500 mg oral capsule), 500 mg= 1 cap, PO, q6h, PRN, 1 refills albuterol(Albuterol (Eqv-ProAir HFA) 90 mcg/inh inhalation aerosol), 2 puff, inhaled, q4h, 3 refills amLODIPine(amLODIPine 2.5 mg oral tablet), 2.5 mg= 1 tab, PO, Daily, 3 refills aspirin(aspirin 81 mg oral delayed release tablet), 81 mg= 1 tab, PO, Daily, 3 refills atorvastatin(atorvastatin 80 mg oral tablet), 80 mg= 1 tab, PO, Daily, 3 refills budesonide-formoterol(Symbicort 160 mcg-4.5 mcg/inh inhalation aerosol), 2 puff, inhaled, bid, 3 refills cholecalciferol(Vitamin D3 2000 intl units (50 mcg) oral capsule), 50 mcg= 1 cap, PO, Daily, 1 refills diabetes supplies(FreeStyle Tayla 2 - 14 day reader), See Instructions diabetes supplies(FreeStyle Tayla 2 - 14 day sensor), See Instructions, 4 refills diabetes supplies(FreeStyle Lite Test Strips 100 ct), See Instructions, 3 refills diabetes supplies(FreeStyle Lite Glucose Monitor), See Instructions diabetes supplies(FreeStyle (28G) Lancets), See Instructions insulin glargine(Lantus Solostar Pen 100 units/mL subcutaneous solution), 30 unit, subQ, Daily, 3 refills ketoconazole topical(ketoconazole 2% topical cream), 1 appl, topical, Daily lisinopril(lisinopril 40 mg oral tablet), 40 mg= 1 tab, PO, Daily, 3 refills metFORMIN(MetFORMIN (Eqv-Glucophage XR) 500 mg oral tablet, extended release) syringe(BD 1 mL Ultra-Fine II Short Insulin Syringe 31G x 5/16"), See Instructions syringe needles(BD needle Ultra-Fine Pen Shanae 32G x 4mm), See Instructions syringe needles(BD needle Ultra-Fine III Short Pen 31G x 8 mm), See Instructions unlisted medication(FREESTYLE TAYLA 2 READER), See Instructions, 3 refills Allergies No Known Medication Allergies orangeshives, sore throat., itchy peachesitchy, sore throat, hives Social History Smoking Status Never smoked cigarettes Immunizations Vaccine Date Status zoster vaccine, inactivated 04/22/2023 Given Comments : Adjuvant Suspension Component 457TK exp 01/06/2025 zoster vaccine, inactivated 2023 Given Comments : AP94E 12/30/24 influenza virus vaccine, inactivated 02/08/2023 Given influenza virus vaccine, inactivated 02/19/2022 Given Recommendations Health Maintenance Pending(in the next year) Due Adult COVID-19 Vaccination due06/28/23Unknown Frequency Adult Social Determinants of Health Screening due06/28/23Unknown Frequency Adult Tdap/Td Vaccine due06/28/23Unknown Frequency Breast Cancer Screening due06/28/23Unknown Frequency Cervical Cancer Screening due06/28/23Unknown Frequency Hepatitis C Screening due06/28/23One-time only Pneumococcal Vaccine Adults and Adolescents with Chronic Illness due06/28/23One-time only Due In Future Adult Influenza Vaccine not due until11/14/23and every 1year Diabetes Management A1c not due until02/09/24and every 366day Satisfied(in the past 1 year) Satisfied Adult Influenza Vaccine on02/08/23.Satisfied by DEWEY Trinh Gillian Body Mass Index on06/28/23.Satisfied by PAM Moon Angela Diabetes Management A1c on02/08/23.Satisfied by Contributor_system, [email or web address] Diabetes Nephropathy Management on02/22/23.Satisfied by Contributor_system, [email or web address] Diabetic Eye Exam on10/01/22.Satisfied by DO Charles Mehwish Lipid Screening on02/08/23.Satisfied by Contributor_system, [email or web address] Shingles Vaccine on02/17/23.Satisfied by DEWEY Trinh Gillian Electronic Signature on File Electronically Reviewed/Signed by: Cheli Charles DO Author Signature Dt/Tm:06/28/2023 09:43 AM Division of Sports Medicine MM Patient Care team information Care Team Personnel Name: DO Charles Mehwish Position: Physician Member Role: Primary Care Provider Address: Address: [address]
--- OUTSIDE RECORDS SUMMARY | 2023-09-05 08:52 | External Medical Summary | Continuity of Care Document ---
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 Role Phone Cheli Charles Primary Care Physician [phone] Encounter [facility] [id number] Date(s): 04/22/23 - 04/22/[address] [place] [id number] [facility], [address] [place] [address] [place] [phone] Encounter Diagnosis Thyroid nodule(Discharge Diagnosis) - 02/17/23 Discharge Disposition: Home or Self Care Attending Physician: DO Charles Mehwish Referring Physician: DO Charles Mehwish Allergies, Adverse Reactions, Alerts No Known Medication Allergies Substance Reaction Severity Status peaches itchy sore throat hives Active oranges hives sore throat. itchy Active Immunizations Given and Recorded Vaccine Date Status [...] 1, PRN: as needed for pain, Pharmacy: [facility] #[id number] Start Date: 02/24/22 Status: Ordered Albuterol (Eqv-ProAir HFA) 90 mcg/inh inhalation aerosol Start: 02/08/23 12:52:00 EDT, 2 puff, inhaled, q4h, Disp# 6.7 g, Refills: 3, Pharmacy: [facility] #[id number] Start Date: 02/08/23 Status: Ordered amLODIPine 2.5 mg oral tablet take 1 tablet by mouth every evening Start Date: 11/26/22 Status: Ordered aspirin 81 mg oral delayed release tablet Start: 11/26/22 14:07:00 EDT, 1 tab, PO, Daily, Disp# 90 tab, Refills: 3, Pharmacy: [facility] #[id number] Start Date: 11/26/22 Status: Ordered atorvastatin 80 mg oral tablet Start: 11/26/22 14:08:00 EDT, 1 tab, PO, Daily, Disp# 90 tab, Refills: 3, Pharmacy: [facility] #[id number] Start Date: 11/26/22 Status: Ordered BD 1 mL Ultra-Fine II Short Insulin Syringe 31G x 5/16" Start: 11/18/22 10:48:00 EDT, See Instructions, Disp# 200 each, Use as directed with insulin. Max 2/day. Use new insulin syringe with each injection., Pharmacy: [facility] #[id number] Start Date: 11/18/22 Status: Ordered BD needle Ultra-Fine III Short Pen 31G x 8 mm Start: 02/24/22 14:05:00 EDT, See Instructions, Disp# 200 each, Use to inject lantus., Pharmacy: [facility] #[id number] Start Date: 02/24/22 Status: Ordered BD needle Ultra-Fine Pen Shanae 32G x 4mm Start: 11/18/22 10:48:00 EDT, See Instructions, Disp# 200 each, Use as directed with insulin. Max 2/day. Use new pen needle with each injection., Pharmacy: [facility] #[id number] Start Date: 11/18/22 Status: Ordered FreeStyle (28G) Lancets Start: 02/24/22 14:05:00 EDT, See Instructions, Disp# 200 each, Use to test blood glucose each morning-fasting., Pharmacy: [facility] #[id number] Start Date: 02/24/22 Status: Ordered FreeStyle Tayla 2 - 14 day reader Start: 03/25/23 14:35:00 EST, See Instructions, Disp# 1 applicator, Refills: 0, Tayla reader, Pharmacy: [facility] #[id number] Start Date: 03/25/23 Status: Ordered FreeStyle Tayla 2 - 14 day sensor Start: 03/25/23 14:35:00 EST, See Instructions, Disp# 3 kit, Refills: 4, Use to check blood glucose. Change every 14 days, [facility]: [facility] #[id number] Start Date: 03/25/23 Status: Ordered FreeStyle Lite Glucose Monitor Start: 02/24/22 14:05:00 EDT, See Instructions, Disp# 1 each, Use to test blood glucose, [facility]acy: [facility] #[id number] Start Date: 02/24/22 Status: Ordered FreeStyle Lite Test Strips 100 ct Start: 12/24/22 15:46:00 EDT, See Instructions, Disp# 200 each, Refills: 3, Use to test blood glucose each morning., [facility]: [facility] #[id number] Start Date: 12/24/22 Status: Ordered ketoconazole 2% topical cream Start: 02/08/23 11:03:00 EDT, 1 appl, topical, Daily, Disp# 30 g, Refills: 0, [facility]: [facility] #[id number] Start Date: 02/08/23 Status: Ordered Lantus Solostar Pen 100 units/mL subcutaneous solution Start: 11/26/22 14:09:00 EDT, 30 unit =, subQ, Daily, Disp# 15 mL, Refills: 3, Note to Pharmacy: patient when call when needs refill, [facility]acy: [facility] #[id number] Start Date: 11/26/22 Status: Ordered lisinopril 20 mg oral tablet Start: 03/01/23 11:57:00 EDT, 1 tab, PO, Daily, Disp# 90 tab, Refills: 0, [facility][id number] Start Date: 03/01/23 Status: Ordered MetFORMIN (Eqv-Glucophage XR) 500 mg oral tablet, extended release take 1 tablet by mouth every evening with dinner Start Date: 11/26/22 Status: Ordered Symbicort 160 mcg-4.5 mcg/inh inhalation aerosol Start: 02/08/23 12:52:00 EDT, 2 puff, inhaled, bid, Disp# 3 each, Refills: 3, [facility]acy: [facility] #[id number] Start Date: 02/08/23 Status: Ordered Vitamin D3 2000 intl units (50 mcg) oral capsule Start: 02/24/22 13:59:00 EDT, 1 cap, PO, Daily, Disp# 90 cap, Refills: 1, [facility] #[id number] Start Date: 02/24/22 Status: Ordered Problem List [...] Diagnosis Diagnosis Type Effective Dates Health Status Cl inical Service Informant Thyroid nodule Discharge Diagnosis 02/17/23 Non-Specified Procedures Procedure Date Related Diagnosis Body Site Status Colonoscopy 1 05/28/22 Completed 1Two 3-4mm polyps in the transverse colon, removed with cold snare, resected and retreived one 3mm polup in the descending colon, removed w/ cold snare, resected and retrieved one 3mm polup in the sigmoid colon, removed w/ cold snare, resected and retrieved diverticulosis in the sigmoid colon non-bleeding internal hemorroids Social History Social History Type Response Smoking Status Never smoked cigaret jerry Sex Patient Care team information Care Team Personnel Name: DO Charles Mehwish Position: Physician Member Role: Primary Care Provider Address: Address: [address]
--- OUTSIDE RECORDS SUMMARY | 2023-09-05 08:52 | External Medical Summary | Continuity of Care Document ---
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 Name Role Phone Cheli Charles Primary Care Physician [phone] Encounter [facility] [id number] Date(s): 07/07/23 - 07/07/23 [facility] 207 [facility] [address] [address] [phone] Discharge Disposition: Home or Self Care Attending Physician: DO Charles Mehwish Allergies, Adverse Reactions, [...] 1, PRN: as needed for pain, Pharmacy: [facility] #[id number] Start Date: 02/24/22 Status: Ordered Albuterol (Eqv-ProAir HFA) 90 mcg/inh inhalation aerosol Start: 06/28/23 9:19:00 EST, 2 puff, inhaled, q4h, Disp# 6.7 g, Refills: 3, Pharmacy: [facility]/pharmacy #[id number] Start Date: 06/28/23 Status: Ordered amLODIPine 2.5 mg oral tablet Start: 06/28/23 9:20:00 EST, 1 tab, PO, Daily, Disp# 90 tab, Refills: 3, Pharmacy: [facility]/pharmacy #[id number] Start Date: 06/28/23 Status: Ordered aspirin 81 mg oral delayed release tablet Start: 11/26/22 14:07:00 EDT, 1 tab, PO, Daily, Disp# 90 tab, Refills: 3, Pharmacy: [facility] #[id number] Start Date: 11/26/22 Status: Ordered atorvastatin 80 mg oral tablet Start: 11/26/22 14:08:00 EDT, 1 tab, PO, Daily, Disp# 90 tab, Refills: 3, Pharmacy: [facility] #[id number] Start Date: 11/26/22 Status: Ordered BD 1 mL Ultra-Fine II Short Insulin Syringe 31G x 5/16" Start: 11/18/22 10:48:00 EDT, See Instructions, Disp# 200 each, Use as directed with insulin. Max 2/day. Use new insulin syringe with each injection., Pharmacy: [facility] #[id number] Start Date: 11/18/22 Status: Ordered BD needle Ultra-Fine III Short Pen 31G x 8 mm Start: 02/24/22 14:05:00 EDT, See Instructions, Disp# 200 each, Use to inject lantus., Pharmacy: [facility] #[id number] Start Date: 02/24/22 Status: Ordered BD needle Ultra-Fine Pen Shanae 32G x 4mm Start: 11/18/22 10:48:00 EDT, See Instructions, Disp# 200 each, Use as directed with insulin. Max 2/day. Use new pen needle with each injection., Pharmacy: [facility] #[id number] Start Date: 11/18/22 Status: Ordered ezetimibe 10 mg oral tablet Start: 06/30/23 11:24:00 EST, 1 tab, PO, Daily, Disp# 90 tab, Refills: 3, Pharmacy: [facility]/pharmacy #[id number] Start Date: 06/30/23 Status: Ordered FreeStyle (28G) Lancets Start: 02/24/22 14:05:00 EDT, See Instructions, Disp# 200 each, Use to test blood glucose each morning-fasting., Pharmacy: [facility] #[id number] Start Date: 02/24/22 Status: Ordered FreeStyle Tayla 2 - 14 day reader Start: 03/25/23 14:35:00 EST, See Instructions, Disp# 1 applicator, Refills: 0, Tayla reader, Pharmacy: [facility] #[id number] Start Date: 03/25/23 Status: Ordered FreeStyle Tayla 2 - 14 day sensor Start: 03/25/23 14:35:00 EST, See Instructions, Disp# 3 kit, Refills: 4, Use to check blood glucose. Change every 14 days, Pharmacy: [facility] #[id number] Start Date: 03/25/23 Status: Ordered FREESTYLE TAYLA 2 READER Start: 06/07/23 12:10:00 EST, FREESTYLE TAYLA 2 READER, eRx Product Type: Supply, See Instructions,Disp# 4 each, Refills: 3, USE CONTINUOUSLY TO MONITOR BLOOD SUGARS DAILY, Pharmacy [facility] #[id number] Start Date: 06/07/23 Status: Ordered FreeStyle Lite Glucose Monitor Start: 02/24/22 14:05:00 EDT, See Instructions, Disp# 1 each, Use to test blood glucose, Pharmacy: [facility] #[id number] Start Date: 02/24/22 Status: Ordered FreeStyle Lite Test Strips 100 ct Start: 12/24/22 15:46:00 EDT, See Instructions, Disp# 200 each, Refills: 3, Use to test blood glucose each morning., Pharmacy: [facility] #[id number] Start Date: 12/24/22 Status: Ordered ketoconazole 2% topical cream Start: 02/08/23 11:03:00 EDT, 1 appl, topical, Daily, Disp# 30 g, Refills: 0, Pharmacy: [facility] #[id number] Start Date: 02/08/23 Status: Ordered Lantus Solostar Pen 100 units/mL subcutaneous solution Start: 11/26/22 14:09:00 EDT, 30 unit =, subQ, Daily, Disp# 15 mL, Refills: 3, Note to Pharmacy: patient when call when needs refill, Pharmacy: [facility] #[id number] Start Date: 11/26/22 Status: Ordered lisinopril 40 mg oral tablet Start: 06/28/23 9:21:00 EST, 1 tab, PO, Daily, Disp# 90 tab, Refills: 3, Pharmacy: [facility]/pharmacy #[id number] Start Date: 06/28/23 Status: Ordered MetFORMIN (Eqv-Glucophage XR) 500 mg oral tablet, extended release take 1 tablet by mouth every evening with dinner Start Date: 11/26/22 Status: Ordered Symbicort 160 mcg-4.5 mcg/inh inhalation aerosol Start: 06/28/23 9:19:00 EST, 2 puff, inhaled, bid, Disp# 3 each, Refills: 3, Pharmacy: [facility]/pharmacy#[id number] Start Date: 06/28/23 Status: Ordered Vitamin D3 2000 intl units (50 mcg) oral capsule Start: 02/24/22 13:59:00 EDT, 1 cap, PO, Daily, Disp# 90 cap, Refills: 1, Pharmacy: [facility] #[id number] Start Date: 02/24/22 Status: Ordered Problem List [...] Active Type 2 diabetes mellitus Confirmed Active Procedures Procedure Date Related Diagnosis Body Site [...] Role: Primary Care Provider Address: Address: [address] [facility] [address] [place] [address]
--- NOTE | 2023-09-05 09:02 | Emergency Department Note ---
Impression & Plan Bilateral wheezing ADMIT ED Provider Note HPI: History obtained from patient. The patient is a 53-year-old female with history of asthma, history of previous CVA, diabetes, hypertension, presents emergency department with chief complaint of wheezing has been worsening over the course of the past 2 weeks. Patient states she has also had some chest tightness. On arrival here to the ED the patient has audible inspiratory and expiratory wheezing. Patient states that her nebulizer machine broke 2 days ago and therefore she has not taken any nebulizer medications for the past 2 days which seems to have been worsening her symptoms. On arrival here to the ED the patient is hypertensive but otherwise hemodynamically stable, she is saturating well on room air on arrival. ROS: - Per HPI Differential Diagnosis: Acute asthma exacerbation, pneumonia, CHF exacerbation, pulmonary edema, pleural effusion, pulmonary embolism, acute coronary syndrome, amongst other potential pathologies. *Outpatient medications and allergy history reviewed. PE: General: Alert, morbidly obese HEENT: Normocephalic, trachea midline Eyes: Extraocular eye movement is intact, no scleral erythema Pulmonary: Severe wheezing with inspiration and expiration bilaterally and throughout, mild tachypnea Cardio: Regular rate and rhythm GI: Abdomen is soft to palpation : No suprapubic tenderness MSK: No evidence of trauma or malformation of the extremities, no edema Skin: No evidence of rash Neuro: Alert, no focal deficits Psychiatric: Cooperative INDEPENDENT INTERPRETATIONS: event specialist: (As interpreted by myself): - An order was placed for continuous cardiac monitoring - Patient was noted to be in sinus rhythm with a rate of 95 EKG: (As interpreted by myself): Rate: 94 Rhythm: Normal sinus rhythm Intervals: QTc 502 ms, otherwise within normal limits ST changes: No ST elevation Time: 0917 Chest x-ray: (As interpreted by myself): Right-sided pneumonia Interventions provided in ED: -DuoNeb breathing treatment x 3, IV Solu-Medrol Medical Decision Making: Patient presents the emergency department with acute bronchospasm. She states that her nebulizer machine broke 2 days ago. On arrival here to the ED the patient is saturating well on room air but she does have some mild tachypnea and inspiratory and expiratory wheezing bilaterally. Lab work shows no leukocytosis, hemoglobin is normal, platelet count is normal, venous blood gas shows a near normal pH at 7.34, pCO2 is normal. CMP does not show any critical findings, troponin is negative x 1, BNP is mildly elevated at 171. Procalcitonin is pending, viral panel testing is negative. Chest x-ray shows what appears to be a multifocal right sided pneumonia. Patient did complain of some chest tightness, I suspect this is related to her bronchospasm. Low suspicion for ACS. EKG does not show any ischemic changes and troponin is negative. Patient has not had any fever, she has had a slight cough but no leukocytosis, no neutrophilic predominance on differential. Will send blood cultures and will send procalcitonin and will defer antibiotics at this time to the admitting service, I suspect that this pneumonia might be viral. On my reassessment following a third DuoNeb breathing treatment the patient has minimal improvement in her wheezing. I do think given her symptoms and chest x-ray findings she will require admission. [facility] hospitalist service was consulted for admission. Consultants/Discussions held with other healthcare providers: -Dr. Angel, Hospitalist Disposition discussion held by myself with: -Patient Diagnosis: 1. Acute bronchospasm with intractable wheezing 2. Atypical chest discomfort 3. Right-sided pneumonia, acute, nonspecific 4. Dyspnea, acute Disposition: Admission Jarvis Nelson DO Emergency Medicine Past Med/Surg History Medical History Asthma daily + prn inh Diabetes mellitus, type 2 Hyperlipidemia Hypertension Morbid obesity Sleep apnea waiting on her cpap; recently diagnosed Surgical History S/P excision of lipoma (03/11/22) Excision Right Arm Lipoma(Right) - Gene Waters DO, FACS Family History Mother Breast cancer Social History (System 11/18/22 @ 11:50 by Kristina Concepcion) Smoking Status: Never smoker Second Hand Exposure: Yes ( and sister in law smoke); Do You Dip or Chew Tobacco: No; Hx Alcohol Use: Yes Alcohol type: beer, wine and hard liquor Hx Substance Use: No Preferred Language: Ukrainian Communication Ability: Effective Air Gun Operator Required: No Beliefs That Will Affect Care: None Current Living Situation: Spouse and Family Current Living Situation Comment: LIVES WITH SPOUSE, SISTER IN LAW current occupational status: employed 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 How many Children do You have: 0 Feels Safe at Home: Yes Assistive Devices: None Allergies Allergies Allergy/AdvReac Type Severity Reaction Status Date / Time orange Allergy Hives Verified 09/05/23 10:33 peach Allergy Hives Verified 09/05/23 10:33 oranges Allergy Mild itchy Uncoded 09/05/23 10:33 peaches Allergy Mild itchy Uncoded 09/05/23 10:33 Home Meds Home Medications Medication Instructions Recorded Confirmed albuterol sulfate 90 mcg/actuation 2 puff inhalation Q6H PRN Wheezing 02/23/22 09/05/23 aerosol inhaler acetaminophen 500 mg tablet 500 mg PO Q6H PRN Pain 02/25/22 09/05/23 cholecalciferol (vitamin D3) 50 50 mcg PO QAM 02/25/22 09/05/23 mcg (2,000 unit) capsule (Vitamin D3) lisinopril 20 mg tablet 20 mg PO QAM 02/25/22 09/05/23 tiotropium bromide 2.5 2 puff inhalation BID ##0 02/25/22 09/05/23 mcg/actuation mist for inhalation (Spiriva Respimat) budesonide-formoterol HFA 160 2 puff inhalation BID 11/15/22 09/05/23 mcg-4.5 mcg/actuation aerosol inhaler albuterol sulfate 2.5 mg/3 mL 2.5 mg continuous nebulization Q6H 09/05/23 09/05/23 (0.083 %) solution for nebulization PRN WHEEZING/sob atorvastatin 80 mg tablet 80 mg PO HS 09/05/23 09/05/23 insulin glargine 100 unit/mL 33 unit subcut HS 09/05/23 09/05/23 subcutaneous solution (Lantus U-100 Insulin) Previous Rx's Medication Instructions Recorded amlodipine 2.5 mg tablet 2.5 mg PO PM #30 tabs 11/16/22 aspirin 81 mg tablet,delayed 81 mg PO DAILY #30 tabs 11/16/22 release clopidogrel 75 mg tablet 75 mg PO QAM #21 tabs 11/16/22 metformin 500 mg tablet,extended 500 mg PO PM #30 tabs 11/16/22 release 24 hr Results & Data (ED) Vital Signs Vital Signs - 24 hr 09/05/23 08:48 09/05/23 09:00 09/05/23 10:00 Temperature 36.7 C Temperature Source Temporal Artery Scan Pulse Rate 103 H 93 H Pulse Rate [Finger] Pulse Rhythm Regular Pulse Strength Normal Respiratory Rate 24 Respiratory Effort / Characteristics Respiratory Depth Blood Pressure 162/97 H Blood Pressure [Left Arm] Blood Pressure Mean 118 Blood Pressure Mean [Left Arm] Blood Pressure Position Sitting Pulse Oximetry 100 94 Oxygen Delivery Method Room Air Room Air Sepsis Recent Fever Within 48 Hours No Sepsis New/Unexplained Change in Mental Status No Sepsis Action Taken by Nursing Physician Notified 09/05/23 10:53 Temperature Temperature Source Pulse Rate Pulse Rate [Finger] 99 H Pulse Rhythm Pulse Strength Respiratory Rate 26 H Respiratory Effort / Characteristics Short of Breath Respiratory Depth Normal Blood Pressure Blood Pressure [Left Arm] 140/90 Blood Pressure Mean Blood Pressure Mean [Left Arm] 106 Blood Pressure Position Pulse Oximetry 95 Oxygen Delivery Method Room Air Sepsis Recent Fever Within 48 Hours Sepsis New/Unexplained Change in Mental Status Sepsis Action Taken by Nursing Laboratory Data 09/05/23 09:04 09/05/23 09:04 Lab Results 09/05/23 09/05/23 Range/Units 09:04 09:22 WBC 6.70 (4.8-10.8) K/ul RBC 5.09 (4.20-5.40) M/uL Hgb 12.3 (12.0-16.0) g/dl Hct 40.1 (37.0-47.0) % MCV 78.8 L (80.0-100.0) fL MCH 24.2 L (25.0-34.0) pg MCHC 30.7 L (32.0-36.0) g/dL RDW Std Deviation 40.6 (36.4-46.3) fL RDW Coeff of Gurmeet 14.2 (11.5-14.5) % Plt Count 263 (130-400) K/uL MPV 10.5 (9.4-12.4) fL Immature Gran % (Auto) 0.1 % Neut % (Auto) 67.1 % Lymph % (Auto) 23.1 % [place] % (Auto) 6.3 % Eos % (Auto) 2.7 % Baso % (Auto) 0.7 % Neut # (Auto) 4.49 (1.40-6.50) K/uL Lymph # (Auto) 1.55 (1.20-3.40) K/uL [place] # (Auto) 0.42 (0.11-0.59) K/uL Eos # (Auto) 0.18 (0.00-0.50) K/uL Baso # (Auto) 0.05 (0.00-0.20) K/uL Immature Gran # (Auto) 0.01 (0.01-0.20) K/uL PT 11.4 (9.0-12.0) Seconds INR 1.0 (0.9-1.1) VBG pH 7.34 L (7.36-7.41) VBG pCO2 50 (38-50) mmHg VBG pO2 28 mmHg VBG HCO3 27 mmol/L VBG O2 Saturation < 60.0 % VBG Base Excess 0.5 mEq/L Sodium 139 (136-145) mmol/L Potassium 3.8 (3.5-5.1) mmol/L Chloride 106 (98-107) mmol/L Carbon Dioxide 29 (21-32) mmol/L Anion Gap 4 (3-11) BUN 9 (6-23) mg/dl Creatinine 0.66 (0.6-1.2) mg/dl Est Cr Clr Drug Dosing 131.4 ml/min Est GFR ( Amer) 116.9 ml/min Est GFR (Non-Af Amer) 100.9 ml/min BUN/Creatinine Ratio 13.6 (10-20) Glucose 169 H (70-99(Fasting)) mg/dl Calcium 9.2 (8.6-10.3) mg/dl Total Bilirubin 0.5 (0.2-1.0) mg/dl AST 10 L (13-39) U/L ALT 9 (7-52) U/L Alkaline Phosphatase 85 (34-104) U/L Troponin I High Sens 10.9 (0-14) pg/ml B-Natriuretic Peptide 171 H (0-100) pg/ml Total Protein 6.9 (6.0-8.3) gm/dl Albumin 3.9 (3.4-5.0) gm/dl Globulin 3.0 (2.5-4.0) gm/dl Albumin/Globulin Ratio 1.3 (0.9-2) Adenovirus (PCR) Not Detected (NotDetected) B. pertussis DNA (PCR) Not Detected (NotDetected) B.parapertussis DNA PCR Not Detected (NotDetected) C. pneumoniae DNA (PCR) Not Detected (NotDetected) Coronavirus OC43 (PCR) Not Detected (NotDetected) Coronavirus HKU1 (PCR) Not Detected (NotDetected) Coronavirus 229E (PCR) Not Detected (NotDetected) SARS-CoV-2 (PCR) Not Detected (NotDetected) Coronavirus NL63 (PCR) Not Detected (NotDetected) Human Metapneumovir PCR Not Detected (NotDetected) Influenza Type A (PCR) Not Detected (NotDetected) Influenza Type B (PCR) Not Detected (NotDetected) M. pneumoniae (PCR) Not Detected (NotDetected) Parainfluenza 1 (PCR) Not Detected (NotDetected) Parainfluenza 2 (PCR) Not Detected (NotDetected) Parainfluenza 3 (PCR) Not Detected (NotDetected) Parainfluenza 4 (PCR) Not Detected (NotDetected) RSV (PCR) Not Detected (NotDetected) Entero/Rhino (PCR) Not Detected (NotDetected) Administered Medications Discontinued Medications Albuterol (Albut/Ipratrop 3mg/0.5mg Neb 3 Ml Vial) 3 ml INH NOW STA Stop: 09/05/23 09:01 Last Admin: 09/05/23 09:09 Dose: 3 ml Documented By: ROSANNA Albuterol (Albut/Ipratrop 3mg/0.5mg Neb 3 Ml Vial) 3 ml NEB NOW STA; Protocol Stop: 09/05/23 09:40 Last Admin: 09/05/23 10:51 Dose: 3 ml Documented By: ASHLIE Methylprednisolone (Methylprednisolone 125 Mg/2 Ml Vial) 125 mg IV NOW STA Stop: 09/05/23 09:01 Last Admin: 09/05/23 09:12 Dose: 125 mg Documented By: ROSANNA Imaging Data Radiologist's Impression: Chest X-Ray 09/05/23 09:00 XR chest 1V portable CLINICAL HISTORY: Dyspnea COMPARISON STUDY: Chest radiograph November 15, 2022. FINDINGS: Lung volumes are normal. Enlargement of the cardiac silhouette is unchanged. Bibasilar airspace opacities noted. There is also patchy right upper lobe opacity. No pneumothorax or pleural effusion is present. Pulmonary vascularity is normal. IMPRESSION: 1. Multifocal right lung opacities suggestive of pneumonia. Radiographic follow- up to ensure resolution is recommended. 2. Stable enlargement of the cardiac silhouette. ACT 112: Negative or not required by law. Electronically signed by: Joey Ventura M.D. 09/05/2023 9:33 AM Discharge Plan Visit Data Chief Complaint: Respiratory Problems Stated Complaint: ASTHMA ATTACK ED Provider: Jarvis Nelson Discharge Problem: Bilateral wheezing Forms Stand Alone Forms: My [facility] Whatever Prescriptions Prescriptions: No Action albuterol sulfate 90 mcg/actuation HFA aerosol inhaler 2 puff inhalation Q6H PRN (Reason: Wheezing) budesonide-formoterol 160-4.5 mcg/actuation HFA aerosol inhaler 2 puff INHALATION BID clopidogrel 75 mg Tablet 75 mg PO QAM Qty: 21 0RF aspirin 81 mg Tablet,Delayed Release (Dr/Ec) 81 mg PO DAILY Qty: 30 0RF amlodipine 2.5 mg tablet 2.5 mg PO PM Qty: 30 0RF metformin 500 mg tablet extended release 24 hr 500 mg PO PM Qty: 30 0RF Rx Instructions: take on a full stomach acetaminophen 500 mg Tablet 500 mg PO Q6H PRN (Reason: Pain) cholecalciferol (vitamin D3) [Vitamin D3] 50 mcg (2,000 unit) Capsule 50 mcg PO QAM lisinopril 20 mg Tablet 20 mg PO QAM Spiriva Respimat 2.5 mcg/actuation Mist 2 puff INHALATION BID Qty: 0 atorvastatin 80 mg tablet 80 mg PO HS albuterol sulfate 2.5 mg /3 mL (0.083 %) solution for nebulization 2.5 mg continuous nebulization Q6H PRN (Reason: WHEEZING/sob) insulin glargine [Lantus U-100 Insulin] 100 unit/mL solution 33 unit subcut HS Referrals Referrals: Cheli Charles DO [Primary Care Provider] -
[2023-09-05] MEDS: ALBUT/IPRATROP 3MG/0.5MG NEB 3 ML VIAL INH STA (09:09)
[2023-09-05] MEDS: methylPREDNISolone 125 MG/2 ML VIAL IV STA (09:12)
[2023-09-05 09:22] LABS: Basophils # (auto) 0.05 K/uL (0.00-0.20); Basophils % (auto) 0.7 %; Eosinophils # (auto) 0.18 K/uL (0.00-0.50); Eosinophils % (auto) 2.7 %; Hematocrit (blood only) 40.1 % (37.0-47.0); Hemoglobin 12.3 g/dl (12.0-16.0); Immature Granulocytes # (auto) 0.01 K/uL (0.01-0.20); Immature Granulocytes % (auto) 0.1 %; Lymphocytes # (auto) 1.55 K/uL (1.20-3.40); Lymphocytes % (auto) 23.1 %; Mean Corpuscular Hemoglobin 24.2 pg (25.0-34.0); Mean Corpuscular Hgb Conc 30.7 g/dL (32.0-36.0); Mean Corpuscular Volume 78.8 fL (80.0-100.0); Mean Platelet Volume 10.5 fL (9.4-12.4); Monocytes # (auto) 0.42 K/uL (0.11-0.59); Monocytes % (auto) 6.3 %; Neutrophils # (auto) 4.49 K/uL (1.40-6.50); Neutrophils % (auto) 67.1 %; Platelet Count 263 K/uL (130-400); RDW Coefficient of Variation 14.2 % (11.5-14.5); RDW Standard Deviation 40.6 fL (36.4-46.3); Red Blood Count 5.09 M/uL (4.20-5.40)
[2023-09-05 09:32] LABS: Base Excess VBG 0.5 mEq/L; HCO3 VBG 27 mmol/L; Oxygen Saturation VBG < 60.0 %; PCO2 VBG 50 mmHg (38-50); PO2 VBG 28 mmHg; pH VBG 7.34 (7.36-7.41)
[2023-09-05 09:35] LABS: Albumin Globulin Ratio 1.3 (0.9-2); Albumin Level 3.9 gm/dl (3.4-5.0); BUN Creatinine Ratio 13.6 (10-20); Bilirubin,Total 0.5 mg/dl (0.2-1.0); Calcium 9.2 mg/dl (8.6-10.3); Creatinine Clr Calc Pharmacy 131.4 ml/min; Est GFR (African American) 116.9 ml/min; Est GFR (Non-African American) 100.9 ml/min; Potassium 3.8 mmol/L (3.5-5.1); Total Protein 6.9 gm/dl (6.0-8.3)
--- NOTE | 2023-09-05 09:35 | XRay Report ---
XR chest 1V portable CLINICAL HISTORY: Dyspnea COMPARISON STUDY: Chest radiograph November 15, 2022. FINDINGS: Lung volumes are normal. Enlargement of the cardiac silhouette is unchanged. Bibasilar airs pace opacities noted. There is also patchy right upper lobe opacity. No pneumothorax or pleural effus ion is present. Pulmonary vascularity is normal. IMPRESSION: 1. Multifocal right lung opacities suggestive of pneumonia. Radiographic follow-up to ensure resoluti on is recommended. 2. Stable enlargement of the cardiac silhouette. ACT 112: Negative or not required by law. Electronically signed by: Joey Ventura M.D. 09/05/2023 9:33 AM
[2023-09-05 09:41] LABS: Troponin I High Sensitivity 10.9 pg/ml (0-14)
[2023-09-05 09:43] LABS: Prothrombin Time 11.4 Seconds (9.0-12.0)
[2023-09-05 10:24] LABS: Adenovirus PCR Not Detected (NotDetected); Bordetella parapertussis PCR Not Detected (NotDetected); Bordetella pertussis PCR Not Detected (NotDetected); Chlamydia pneumoniae PCR Not Detected (NotDetected); Coronavirus 229E PCR Not Detected (NotDetected); Coronavirus CoV-2 (COVID19)PCR Not Detected (NotDetected); Coronavirus HKU1 PCR Not Detected (NotDetected); Coronavirus NL63 PCR Not Detected (NotDetected); Coronavirus OC43PCR Not Detected (NotDetected); Human Metapneumovirus PCR Not Detected (NotDetected); Influenza A PCR Not Detected (NotDetected); Influenza B PCR Not Detected (NotDetected); Mycoplasma pneumoniae PCR Not Detected (NotDetected); Parainfluenza Virus 1 PCR Not Detected (NotDetected); Parainfluenza Virus 2 PCR Not Detected (NotDetected); Parainfluenza Virus 3 PCR Not Detected (NotDetected); Parainfluenza Virus 4 PCR Not Detected (NotDetected); Respiratory Syncytial VirusPCR Not Detected (NotDetected); Rhinovirus/Enterovirus PCR Not Detected (NotDetected)
[2023-09-05] MEDS: ALBUT/IPRATROP 3MG/0.5MG NEB 3 ML VIAL NEB STA ×3 (10:51→12:28)
--- NOTE | 2023-09-05 11:29 | History & Physical Report ---
Date of Service September 05, 2023 Assessment & Plan (1) Asthma exacerbation: Plan: -Admit to the PCU on tele and pulse oximetry -Currently stable on RA but still with tripod positioning and audible expiratory wheezing on exam -Currently able to speak in complete sentences -Has been experiencing progressive SOB, wheezing, and non-productive cough -Full respiratory biofire is negative -CXR was read as Multifocal right lung opacities suggestive of pneumonia. >She is without a leukocytosis and procal is negative >We will start atypical coverage for now with Q12H doxycycline -Will obtain stat mag level and sputum culture with gram stain -S/P 125 mg IV Iza-Medrol and 2 albuterol nebs in the ED -Will continue with 40 mg IV solu-medrol TID tomorrow -Will convert her Spiriva to BIDr nebs -Will give a duonbe neb stat then continue with QIDr dosing -Please ensure patient has new nebulizer machine prior to discharge -Incentive spirometry, flutter therapy, prn O2 to keep SpO2 at or above 92% -Will obtain afternoon ABG to monitor her progress, if she is clinically declining will have our cooling machine operator evaluate her -SQ loveox for DVT PPX -HH/DMII diet with 2 gm sodium restriction -AM CBC,BMP,mag, PT/INR (2) SOB (shortness of breath): Plan: -Likely due to acute asthma exacerbation with possible pneumonia -Chest tightness has improved with initial treatment of her asthma exacerbation -High sen trop is WNL, BNP elevated at 171 but no signs of congestive failure on CXR -Will obtain stat ECG as one was not obtain in the ED -Continue to monitor on tele (3) Hypertension: Plan: -Stable -Continue amlodipine and lisinopril (4) Diabetes: Plan: -Hold metformin -Monitor BSG ACHS, goal will be 110-160 with systemic steroids -Normally takes 33 units HS lantus, will convert to 18 units BID for now with systemic steroid treatment -Start CF of 35 and CR of 12 -Pharmacy glycemic consult placed (5) CVA (cerebral vascular accident): Plan: -Continue aspirin and plavix Plan The patient was discussed with Dr. Angel at the time of the admission History of Present Illness Chief Complaint: Ongoing SOB/wheezing Primary Care Provider: DO Angie Kuo is a 53 year old female with a PMH significant for previous CVA in 2022, HTN, HFrEF (LVEF of 45-50%), Mild aortic stenosis, DMII and Asthma who presented to the [facility] ED on 09/05/23 with complaints of progressive SOB/wheezing over the past 2 weeks. She was noted to be tachycardic at 103 and tachypneic at 26 BPM on arrival but otherwise stable. Labs were significant for a VBG pH of 7.34, pCO2 of 50, pO2 of 28, negative procal, and negative full respiratory biofire. Chest xray was read as "1. Multifocal right lung opacities suggestive of pneumonia. Radiographic follow-up to ensure resolution is recommended. 2. Stable enlargement of the cardiac silhouette.". The patient was noted to have significant bronchospasm on arrival for ED staff. She was given 125 mg IV Solu- medrol and 2 albuterol nebulizer treatments with minimal improvement in symptoms. We were asked to admit the patient for ongoing treatment of asthma exacerbation. At the time of the exam the patient was sitting on the side of her bed and appears to be in mild respiratory distress with audible expiratory wheezing and tripod positioning but able to speak in complete sentences. She states that she has been having progressive non-productive cough, wheezing, and SOB over the past 2 weeks. When asked, she denies tobacco use, but her and [id number] both smoke in their home. Denies recent fever or chills. Has had chest tightness but denies chest pain, hemoptysis, productive cough, vomiting, abd pain, dysuria, hematuria, melena, LE swelling, and recent trauma. Patient had been using her spiriva and PRN albuterol nebs without improvement in the symptoms. Her nebulizer machine broke approximately 48 hours ago as well. She had minimal improvement of her symptoms after the first 2 albuterol nebs in the ED. She is a full code and her would make medical decisions for her if she cannot make them herself. Please refer to Dr. Angel's attestation for any changes to the treatment plan Allergies Allergy/AdvReac Type Severity Reaction Status Date / Time orange Allergy Hives Verified 09/05/23 10:33 peach Allergy Hives Verified 09/05/23 10:33 Home Medications Medication Instructions Recorded Confirmed Type albuterol sulfate 90 mcg/actuation 2 puff inhalation Q6H PRN Wheezing 02/23/22 09/05/23 History aerosol inhaler acetaminophen 500 mg tablet 500 mg PO Q6H PRN Pain 02/25/22 09/05/23 History cholecalciferol (vitamin D3) 50 50 mcg PO QAM 02/25/22 09/05/23 History mcg (2,000 unit) capsule (Vitamin D3) lisinopril 20 mg tablet 20 mg PO QAM 02/25/22 09/05/23 History tiotropium bromide 2.5 2 puff inhalation BID ##0 02/25/22 09/05/23 History mcg/actuation mist for inhalation (Spiriva Respimat) budesonide-formoterol HFA 160 2 puff inhalation BID 11/15/22 09/05/23 History mcg-4.5 mcg/actuation aerosol inhaler amlodipine 2.5 mg tablet 2.5 mg PO PM #30 tabs 11/16/22 09/05/23 Rx aspirin 81 mg tablet,delayed 81 mg PO DAILY #30 tabs 11/16/22 09/05/23 Rx release clopidogrel 75 mg tablet 75 mg PO QAM #21 tabs 11/16/22 09/05/23 Rx metformin 500 mg tablet,extended 500 mg PO PM #30 tabs 11/16/22 09/05/23 Rx release 24 hr albuterol sulfate 2.5 mg/3 mL 2.5 mg continuous nebulization Q6H 09/05/23 09/05/23 History (0.083 %) solution for nebulization PRN WHEEZING/sob atorvastatin 80 mg tablet 80 mg PO HS 09/05/23 09/05/23 History insulin glargine 100 unit/mL 33 unit subcut HS 09/05/23 09/05/23 History subcutaneous solution (Lantus U-100 Insulin) Past Med/Surg History Medical History Asthma daily + prn inh Diabetes mellitus, type 2 Hyperlipidemia Hypertension Morbid obesity Sleep apnea waiting on her cpap; recently diagnosed Surgical History S/P excision of lipoma (03/11/22) Excision Right Arm Lipoma(Right) - Gene M. Chambers, DO, FACS Family History Mother Breast cancer Social History (System 11/18/22 @ 11:50 by Kristina Concepcion) Smoking Status: Never smoker Second Hand Exposure: No; Do You Dip or Chew Tobacco: No; Tobacco Cessation Education Requested by Patient: No Hx Alcohol Use: Yes Alcohol type: hard liquor Hx Substance Use: No Preferred Language: [place] Communication Ability: Effective Dye House Supervisor Required: No Beliefs That Will Affect Care: None Current Living Situation: Spouse Current Living Situation Comment: LIVES WITH SPOUSE, SISTER IN LAW current occupational status: employed 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 How many Children do You have: 0 Other Information That Helps Us Care for You: No Feels Safe at Home: Yes Safety Concerns: Feels Safe At This Time Assistive Devices: Glasses Physical Exam Physical Exam: Physical Exam: General: In mild distress due to respiratory status with tripod positioning and audible expiratory wheezing, no stridor noted, stated age, morbidly obese, non-toxic appearing HEENT: Normocephalic, atraumatic, no scleral icterus, pupils around round, symmetrical, and reactive to light, moist mucus membranes, trachea midline, no thyromegaly Chest/Pulm: No mild distress, able to speak in complete sentences, symmetrical chest expansion, diffuse expiratory wheezing Cardiac: RRR, no murmurs noted Abdomen: Negative for ascites and bruising, normoactive bowel sounds, soft, non-tender to palpation throughout Musculoskeletal: Symmetrical and without signs of acute trauma, upper and lower extremities with full ROM, no atrophy, spasticity, or flaccidity Extremities: Radial, dorsalis pedis, and posterior tibial pulses are intact and symmetrical, no edema noted in the BL LE's Skin: Warm, dry, no rashes , lesions, or scars noted Neuro: Alert and oriented to person, place, month, year, and president, no focal defects, no tremors noted Psych: Mild distress, polite and cooperative during the exam Results & Data Results & Data Vital Signs (Past 12 Hours) Vital Signs Temp Pulse Pulse Resp BP BP Pulse Ox 09/05/23 10:53 99 H 26 H 140/90 95 09/05/23 10:00 93 H 09/05/23 09:00 94 09/05/23 08:48 36.7 C 103 H 24 162/97 H 100 O2 Del Method 04/21/24 10:53 Room Air 09/05/23 10:00 09/05/23 09:00 Room Air 09/05/23 08:48 Room Air Laboratory Results Abnormal lab results 09/05/23 09/05/23 Range/Units 09:04 09:22 MCV 78.8 L (80.0-100.0) fL MCH 24.2 L (25.0-34.0) pg MCHC 30.7 L (32.0-36.0) g/dL VBG pH 7.34 L (7.36-7.41) Glucose 169 H (70-99(Fasting)) mg/dl AST 10 L (13-39) U/L B-Natriuretic Peptide 171 H (0-100) pg/ml Diagnostic Findings Chest X-Ray 09/05/23 09:00 XR chest 1V portable CLINICAL HISTORY: Dyspnea COMPARISON STUDY: Chest radiograph November 15, 2022. FINDINGS: Lung volumes are normal. Enlargement of the cardiac silhouette is unchanged. Bibasilar airspace opacities noted. There is also patchy right upper lobe opacity. No pneumothorax or pleural effusion is present. Pulmonary vascularity is normal. IMPRESSION: 1. Multifocal right lung opacities suggestive of pneumonia. Radiographic follow- up to ensure resolution is recommended. 2. Stable enlargement of the cardiac silhouette. ACT 112: Negative or not required by law. Electronically signed by: Joey Ventura M.D. 09/05/2023 9:33 AM ECG Additional Comments: Will obtain at the time of the admission Code Status & VTE Plan Code Status Full code VTE Prophylaxis Plan VTE Prophylaxis will be ordered: Yes Supervising Physician Co-Signing Physician Notes I personally saw and examined the patient. I verified all cooney points and agree with Roderick Cohn PA-C with the following exceptions and/or additions: 53 year old female who presents to the ER with shortness of breath worsening over the last 2 weeks. Second hand smoke exposure at home. Improved since admission slightly. O/E HS increased rate, regular rhythm, no murmurs, no respiratory distress, inspiratory and expiratory wheezing throughout, Abdo SNT, trace pitting pedal edema b/l equal A/P Asthma exacerbation - Solu-medrol 125mg IV given in ER, continue 40mg IV BID, duonebs, formoterol/budesonide nebs BID Abnormal CXR - read as multifocal right lung opacities, clinically no worse on right side on auscultation, WBC and procalcitonin negative, Biofire negative, agree with atypical coverage only with doxycycline however if spiking fevers or not clinically improving as expected recommend repeat CXR. Otherwise repeat CXR recommended in 4-6 weeks to ensure resolution. PG Care Time/CCT Total # of Minutes Spent Total Time Spent with Patient: Total time spent is greater than 50% in coordination of care (as documented) at patient's floor/unit and/or counseling patient: Coding [place] [address] INT INP/OBS CARE 3/75MIN Patient Type Established Medical Decision Making High Complexity Diagnoses Asthma exacerbation J45.901 SOB (shortness of breath) R06.02 Hypertension I10 Diabetes E11.9 CVA (cerebral vascular accident) I63.9
[2023-09-05] MEDS ORDERED: PHARMACY GLYCEMIC MGMT CONSULT PRN (11:35)
[2023-09-05] MEDS ORDERED: DEXTROSE 50% 50 ML SYRINGE IV PRN (11:35)
[2023-09-05] MEDS ORDERED: GLUCOSE 10 TAB/TUBE PO PRN (11:35)
[2023-09-05] MEDS ORDERED: GLUCOSE 40% GEL 15 GM TUBE PO PRN (11:35)
[2023-09-05] MEDS ORDERED: GLUCAGON FOR INJ 1 MG VIAL SQ PRN (11:35)
[2023-09-05] MEDS: FORMOTEROL 20 MCG/2 ML VIAL ONE (12:01)
[2023-09-05 12:11] LABS: Magnesium 1.6 mg/dl (1.7-2.4)
[2023-09-05] MEDS ORDERED: LANTUS PER UNIT CHARGE SQ ONE (12:15)
--- NOTE | 2023-09-05 12:15 | Pharmacy Report ---
Pharmacy Glycemic Short Note 2 - Date of Service September 05, 2023 - Glycemic Short BSG Results (Last 24 hours): 09/05/23 09:04 Glucose 169 H OUTPATIENT ANTIDIABETIC REGIMEN: * Lantus 33 units SQ HS * Metformin ER 500mg PO Daily * A1c 10.9% 11/16/22, updated A1c ordered ASSESSMENT: * 53 yo F, PMH CVA in 2022, HTN, HFrEF (LVEF of 45-50%), Mild aortic stenosis, DMII and Asthma, presents w/ asthma exacerbation. * Patient received 125mg IV Solu-Medrol x1 in ER - will give Lantus dose to cover and then place HS on scale based on BSG. * Will start with tight NovoLog parameters and loosen as steroid effects wear off. PLAN FOR INPATIENT GLYCEMIC CONTROL: * Hold outpatient oral diabetes medications * Basal insulin * Lantus 30 units SQ x 1 now, then HS = 15 units for BSG < 120, 33 units for BSG 120-180, 40 units for BSG > 180 * Bolus insulin * NovoLog per scale ACHS or Q6hrs while NPO * Goal Range: Low 110 mg/dL - High 140 mg/dL * Correction Factor: 20 mg/dL/unit * Nutritional / Prandial insulin per carb ratio of 1 unit per 6 grams CHO consumed
[2023-09-05] MEDS: DOXYCYCLINE HYCLATE 100 MG in DEXTROSE 5% MINI-B 100 ML IV STA (12:34)
[2023-09-05] MEDS: MAGNESIUM SULFATE / D5W 1 GM/100 ML BAG IV SCH (12:39)
[2023-09-05] MEDS: INSULIN ASPART PER UNIT CHARGE SC SCH ×2 (13:09→23:34)
[2023-09-05] MEDS: LANTUS PER UNIT CHARGE SQ ONE (13:40)
[2023-09-05] MEDS: ALBUT/IPRATROP 3MG/0.5MG NEB 3 ML VIAL NEB SCH (13:55)
[2023-09-05] MEDS: ACETAMINOPHEN 500 MG TAB PO PRN (19:29)
[2023-09-05] MEDS: FORMOTEROL 20 MCG/2 ML VIAL NEB SCH (19:43)
[2023-09-05] MEDS: BUDESONIDE 0.5 MG/2 ML VIAL (PULMICORT) NEB SCH (19:44)
[2023-09-05 20:40] LABS: Appearance Urine Clear (Clear); Bacteria Urine Automated None Seen (None Seen); Bilirubin Urine Negative (Negative); Blood Urine Negative (Negative); Cast Urine Automated 0-2 /lpf (0-2); Color Urine Yellow; Glucose Urine UA 3+ (Negative); Ketones Urine Trace (Negative); Leukocyte Esterase Urine Trace (Negative); Nitrite Urine Negative (Negative); Protein Urine 1+ (Negative); RBC Urine Automated 0-2 /hpf (0-2); Specific Gravity Urine 1.032 (1.000-1.030); Urobilinogen Urine Negative (Negative); pH Urine 5.5 (4.5-7.5)
[2023-09-05] MEDS: lisinopril 20 MG TAB PO ONE (20:43)
[2023-09-05] MEDS: DOXYCYCLINE HYCLATE 100 MG in DEXTROSE 5% MINI-B 100 ML IV SCH (20:43)
[2023-09-05] MEDS: ENOXAPARIN INJ 40 MG/0.4 ML SYR SQ SCH (20:43)
[2023-09-05] MEDS: amLODIPine BESYLATE 5 MG TAB PO SCH (20:44)
[2023-09-05] MEDS: ATORVASTATIN 40 MG TAB PO SCH (20:44)
[2023-09-05] MEDS ORDERED: LANTUS PER UNIT CHARGE SC SCH (21:00)
[2023-09-05] MEDS: LANTUS PER UNIT CHARGE SC SCH (21:11)
[2023-09-05] MEDS: methylPREDNISolone 40 MG in SYRINGE 0 ML IV SCH (21:12)
--- NOTE | 2023-09-06 06:05 | Electrocardiogram Report ---
Test Reason : Blood Pressure : / mmHG Vent. Rate : 097 BPM Atrial Rate : 097 BPM P-R Int : 160 ms QRS Dur : 088 ms QT Int : 392 ms P-R-T Axes : 050 013 061 degrees QTc Int : 497 ms Normal sinus rhythm Cannot rule out Anterior infarct , age undetermined Abnormal ECG When compared with ECG of 02-MAR-2022 08:41, No significant change was found Confirmed by Ryder Orellana ([id number]) on 09/06/2023 6:04:51 AM Referred By: Cheli Charles Confirmed By:Ryder Orellana
[2023-09-06] MEDS: LANTUS PER UNIT CHARGE SC SCH ×2 (08:22→21:11)
[2023-09-06] MEDS ORDERED: methylPREDNISolone 40 MG in SYRINGE 0 ML IV SCH (09:00)
[2023-09-06] MEDS ORDERED: methylPREDNISolone 125 MG/2 ML VIAL IV SCH (09:00)
[2023-09-06] MEDS: CLOPIDOGREL BISULFATE 75 MG TAB PO SCH (09:22)
[2023-09-06] MEDS: lisinopril 20 MG TAB PO SCH (09:22)
[2023-09-06] MEDS: ASPIRIN 81 MG ECTAB PO SCH (09:22)
[2023-09-06 09:53] LABS: Basophils # (auto) 0.01 K/uL (0.00-0.20); Basophils % (auto) 0.1 %; Hematocrit (blood only) 40.3 % (37.0-47.0); Hemoglobin 12.4 g/dl (12.0-16.0); Immature Granulocytes # (auto) 0.04 K/uL (0.01-0.20); Immature Granulocytes % (auto) 0.4 %; Lymphocytes # (auto) 1.36 K/uL (1.20-3.40); Lymphocytes % (auto) 13.2 %; Mean Corpuscular Hgb Conc 30.8 g/dL (32.0-36.0); Mean Corpuscular Volume 78.1 fL (80.0-100.0); Mean Platelet Volume 11.2 fL (9.4-12.4); Monocytes % (auto) 4.9 %; Neutrophils # (auto) 8.37 K/uL (1.40-6.50); Neutrophils % (auto) 81.4 %; Platelet Count 312 K/uL (130-400); RDW Coefficient of Variation 14.2 % (11.5-14.5); RDW Standard Deviation 39.7 fL (36.4-46.3); Red Blood Count 5.16 M/uL (4.20-5.40); White Blood Count 10.28 K/ul (4.8-10.8)
[2023-09-06 10:04] LABS: BUN Creatinine Ratio 20.6 (10-20); Calcium 9.5 mg/dl (8.6-10.3); Creatinine Clr Calc Pharmacy 130.1 ml/min; Est GFR (African American) 115.7 ml/min; Est GFR (Non-African American) 99.9 ml/min; Potassium 4.3 mmol/L (3.5-5.1)
[2023-09-06 10:14] LABS: INR 1.1 (0.9-1.1); Prothrombin Time 11.9 Seconds (9.0-12.0)
--- NOTE | 2023-09-06 10:38 | Electrocardiogram Report ---
Test Reason : Blood Pressure : / mmHG Vent. Rate : 094 BPM Atrial Rate : 094 BPM P-R Int : 154 ms QRS Dur : 090 ms QT Int : 402 ms P-R-T Axes : 042 020 068 degrees QTc Int : 502 ms Normal sinus rhythm Possible Left atrial enlargement Poor R wave progression, consider anterior RI vs. lead placement vs. LVH Prolonged QT Abnormal ECG When compared with ECG of 02-MAR-2022 08:41, No significant change was found Confirmed by Yoabni Obregon ([id number]) on 09/06/2023 10:37:59 AM Referred By: Cheli Charles Confirmed By:Yobani Obregon
--- NOTE | 2023-09-06 10:40 | Electrocardiogram Report ---
Test Reason : Blood Pressure : / mmHG Vent. Rate : 097 BPM Atrial Rate : 097 BPM P-R Int : 166 ms QRS Dur : 098 ms QT Int : 408 ms P-R-T Axes : 044 030 062 degrees QTc Int : 518 ms Normal sinus rhythm Poor R wave progression, consider anterior AL vs. lead placement vs. LVH Prolonged QT Abnormal ECG When compared with ECG of 05-SEP-2023 12:10, No significant change was found Confirmed by Yobani Obregon ([id number]) on 09/06/2023 10:39:45 AM Referred By: Cheli Charles Confirmed By:Yobani Obregon
[2023-09-06 10:51] LABS: Estimated Average Glucose 237 mg/dl; Hemoglobin A1C 9.9 % (4.5-5.6)
--- NOTE | 2023-09-06 10:58 | Electrocardiogram Report ---
Test Reason : Blood Pressure : / mmHG Vent. Rate : 101 BPM Atrial Rate : 101 BPM P-R Int : 164 ms QRS Dur : 098 ms QT Int : 398 ms P-R-T Axes : 000 143 116 degrees QTc Int : 516 ms Suspect arm lead reversal, interpretation assumes no reversal Sinus tachycardia Lateral infarct (cited on or before 05-SEP-2023) Abnormal ECG When compared with ECG of 05-SEP-2023 15:40, (unconfirmed) QRS axis Shifted right Questionable change in initial forces of Lateral leads Confirmed by Yobani Obregon ([id number]) on 09/06/2023 10:58:13 AM Referred By: Cheli Charles Confirmed By:Yobani Obregon
--- NOTE | 2023-09-06 13:24 | Hospitalist Progress Note ---
Date of Service September 06, 2023 Assessment & Plan (1) Asthma exacerbation: Plan: Has been experiencing progressive SOB, wheezing, and non-productive cough respiratory biofire is negative, CXR was read as Multifocal right lung opacities suggestive of pneumonia, but no leukocytosis and procal is negative Continue doxycycline and add ceftriaxone for sinusitis coverage as below Continue IV Iza-Medrol Continue Budesonide, Formoterol nebs bid and qid Krista Wheat Shipper made arrangements with home DME for new nebulizer machine upon discharge Continue incentive spirometry, flutter therapy, prn O2 to keep SpO2 at or above 92% (2) Pneumonia: Plan: as above repeat CXR in AM, PA/Lat and if persists, needs repeat CXR in 4-6 weeks to ensure resolution given high risk of lung CA sputum cx ordered but not yet collected as not really producing much sputum add ceftriaxone to doxy (3) Sinusitis: Plan: with headache, sinus tenderness, patient-perceived redness and edema of cheeks--> add on ceftriaxone to doxy for acute sinusitis tylenol prn FAYE (4) SOB (shortness of breath): Plan: Due to acute asthma exacerbation with possible pneumonia. Acute on chronic HFpEF ruled out Chest tightness has improved with initial treatment of her asthma exacerbation -High sen trop is WNL, BNP elevated at 171 but no signs of congestive failure on CXR ECG no ischemic changes (5) Hypertension: Plan: BPs controlled to mildly elevated Continue amlodipine and lisinopril and adjust as needed (6) Diabetes: Plan: HgbA1C 9.9%, uncontrolled DMII Hold metformin Monitor BSG ACHS, goal will be 110-160 with systemic steroids Normally takes 33 units HS [facility] glycemic consult placed and adjusting insulin for steroid-induced hyp erglycemia (7) CVA (cerebral vascular accident): Plan: Continue aspirin, but was NOT to be on Plavix after her stroke after 3 weeks--> confirmed in ext med history that she has not been prescribed Plavix since 11/2022--> dc plavix Continue high intensity statin Continue BP control, needs improved DM control Needs to quit smoking Plan DVT proph-Lovenox SQ Dispo-continued stay on tele Admission and Anticipated Discharge Date Admission Date: September 05, 2023 Subjective Still feels like she's wheezing and LUBIN. She is also noting pain in cheeks and s ome swelling of cheeks, redness, and now with a moderate headache.Has some sinus congestion as well, no sore throat. Cough is nonproductive. Tele with NSR, rates 90s Physical Exam Constitutional: WD/WN, vitals as above + obese Eyes: PERRL, conjunctivae normal, anicteric sclerae ENMT: Ears: no hearing impairment Mouth: no lip abnormality and no tongue abnormality no facial erythema or edema, +TTP over maxilla bilat Respiratory: normal respiratory effort; no cough and not tachypneic Auscultation: + wheezes (bilat exp wheezes upper lung hammond); no crackles and no rhonchi Cardiovascular: RRR, no murmur, no edema Gastrointestinal (Abdomen): normal bowel sounds, soft, nontender, no hepatosplenomegaly Psychiatric: A+Ox3, euthymic affect Results & Data Results & Data Vital Signs (Past 12 Hours) Vital Signs Temp Pulse Pulse Resp BP Pulse Ox O2 Del Method 09/06/23 10:43 36.4 C L 93 H 20 161/98 H 95 Room Air 09/06/23 10:39 102 H 24 99 Room Air 09/06/23 08:51 97 H 09/06/23 08:51 Oxymask 09/06/23 07:11 97 H 24 99 Room Air 09/06/23 06:59 36.3 C L 95 H 20 153/92 H 99 Room Air 09/06/23 03:00 36.4 C L 103 H 21 149/86 H 96 Room Air O2 Flow Rate 09/06/23 10:43 09/06/23 10:39 09/06/23 08:51 09/06/23 08:51 1 09/06/23 07:11 09/06/23 06:59 09/06/23 03:00 Laboratory Results Blood cxs reviewed PG Care Time/CCT Total # of Minutes Spent Total Time Spent with Patient: Total time spent is greater than 50% in coordination of care (as documented) at patient's floor/unit and/or counseling patient: Coding Level of Care Code 86566 SUB INP/OBS CARE 3/50MIN Diagnoses Asthma exacerbation J45.901 Pneumonia J18.9 Sinusitis J32.9 SOB (shortness of breath) R06.02 Hypertension I10 Diabetes E11.9 CVA (cerebral vascular accident) I63.9
[2023-09-06] MEDS: cefTRIAXone SODIUM 2,000 MG in DEXTROSE 5 % MINI-B 50 ML IV SCH (14:21)
--- NOTE | 2023-09-06 14:54 | Pharmacy Report ---
Pharmacy Glycemic Short Note 2 - Date of Service September 06, 2023 - Glycemic Short BSG Results (Last 24 hours): 09/05/23 09/05/23 09/05/23 16:01 20:17 23:21 Glucose POC Glucose 186 H 249 H 233 H 09/06/23 09/06/23 09/06/23 03:59 06:57 09:10 Glucose 227 H POC Glucose 156 H 157 H 09/06/23 11:10 Glucose POC Glucose 216 H OUTPATIENT ANTIDIABETIC REGIMEN: * Lantus 33 units SQ HS * Metformin ER 500mg PO Daily * A1c 10.9% 11/16/22, updated A1c ordered ASSESSMENT: 09/05 * Patient received total of 85 units of insulin yesterday, of which 63 units were basal * Fasting BSG 157 mg/dL - received 6 units of correctional insulin overnight. Continues with solumedrol 40 mg iv tid - will give another 30 units of basal insulin this AM and will have a scale for HS as slightly less steroids today 09/04 * 53 yo F, PMH CVA in 2022, HTN, HFrEF (LVEF of 45-50%), Mild aortic stenosis, DMII and Asthma, presents w/ asthma exacerbation. * Patient received 125mg IV Solu-Medrol x1 in ER - will give Lantus dose to cover and then place HS on scale based on BSG. * Will start with tight NovoLog parameters and loosen as steroid effects wear off. PLAN FOR INPATIENT GLYCEMIC CONTROL: * Hold outpatient oral diabetes medications * Basal insulin * Lantus 30 units SQ x 1 this Am * Lantus 20-30 units HS * Bolus insulin * NovoLog per scale ACHS or Q6hrs while NPO * Goal Range: Low 110 mg/dL - High 140 mg/dL * Correction Factor: 15 mg/dL/unit * Nutritional / Prandial insulin per carb ratio of 1 unit per 5 grams CHO consumed
[2023-09-06] MEDS: FLUTICASONE PROPIONATE NA SPR 16 GM BTL PRN (22:08)
[2023-09-06] MEDS: diphenhydrAMINE Capsule 25 MG CAP PO ONE (22:08)
[2023-09-07] MEDS: INSULIN ASPART PER UNIT CHARGE SC SCH (01:39)
[2023-09-07 07:18] LABS: Basophils # (auto) 0.01 K/uL (0.00-0.20); Basophils % (auto) 0.1 %; Hematocrit (blood only) 38.3 % (37.0-47.0); Hemoglobin 11.8 g/dl (12.0-16.0); Immature Granulocytes # (auto) 0.08 K/uL (0.01-0.20); Immature Granulocytes % (auto) 0.6 %; Lymphocytes % (auto) 10.7 %; Mean Corpuscular Hemoglobin 23.8 pg (25.0-34.0); Mean Corpuscular Hgb Conc 30.8 g/dL (32.0-36.0); Mean Corpuscular Volume 77.4 fL (80.0-100.0); Mean Platelet Volume 11.1 fL (9.4-12.4); Monocytes # (auto) 0.66 K/uL (0.11-0.59); Monocytes % (auto) 5.1 %; Neutrophils # (auto) 10.89 K/uL (1.40-6.50); Neutrophils % (auto) 83.5 %; Platelet Count 307 K/uL (130-400); RDW Coefficient of Variation 14.2 % (11.5-14.5); RDW Standard Deviation 39.6 fL (36.4-46.3); Red Blood Count 4.95 M/uL (4.20-5.40); White Blood Count 13.04 K/ul (4.8-10.8)
[2023-09-07 07:37] LABS: BUN Creatinine Ratio 31.7 (10-20); Calcium 9.3 mg/dl (8.6-10.3); Creatinine Clr Calc Pharmacy 147.6 ml/min; Est GFR (African American) 120.6 ml/min; Est GFR (Non-African American) 104.1 ml/min; Potassium 4.2 mmol/L (3.5-5.1)
[2023-09-07] MEDS: LANTUS PER UNIT CHARGE SC SCH (08:57)
--- NOTE | 2023-09-07 10:13 | XRay Report ---
XR chest 2V PA/lateral CLINICAL HISTORY: f/u [facility] COMPARISON STUDY: Chest radiograph September 05, 2023. FINDINGS: There is no pneumothorax or pleural effusion. The right lung airspace opacities on prior ex am have resolved. No consolidation is identified. Enlargement of the cardiac silhouette is unchanged. There is no evidence for pulmonary edema. IMPRESSION: No acute cardiopulmonary findings. Resolution of the right lung airspace opacities on pr ior chest radiograph. ACT 112: Negative or not required by law. Electronically signed by: Joey Ventura M.D. 09/07/2023 10:11 AM
[2023-09-07] MEDS: KETOROLAC TROMETHAMINE 15 MG/ML VIAL IV PRN (15:23)
--- NOTE | 2023-09-07 19:17 | Hospitalist Progress Note ---
Date of Service September 07, 2023 Assessment & Plan (1) Asthma exacerbation: Plan: Has been experiencing progressive SOB, wheezing, and non-productive cough respiratory biofire is negative, CXR was read as Multifocal right lung opacities suggestive of pneumonia, but no leukocytosis and procal is negative. Repeat CXR 09/06 PA/Lat now no PNA Improving, wheezing resolved Continue doxycycline for atypical coverage and ceftriaxone for sinusitis coverage as below Continue IV Iza-Medrol but reduce dose to 40mg IV bid Continue Budesonide, Formoterol nebs bid and qid DUonebs Debarker Operator made arrangements with home DME for new nebulizer machine upon discharge Continue incentive spirometry, flutter therapy, prn O2 to keep SpO2 at or above 92% -now weaned off O2 (2) Pneumonia: Plan: as above, now resolved on repeat CXR, was not likely true PNA on initial CXR continue ceftriaxone, doxy as above (3) Headache: Plan: thought to be related to sinusitis but not improving with abx and steroids, toradol, or tylenol could be migraine as she is also having nausea/vomiting x 1, photophobia; could also be from caffeine withdrawal as she typicall drinks 4 Pepsis per day add fioricet prn, compazine for nausea continue toradol prn (4) Sinusitis: Plan: with headache, sinus tenderness, patient-perceived redness and edema of cheeks--> continue on ceftriaxone to doxy for acute sinusitis (5) SOB (shortness of breath): Plan: Due to acute asthma exacerbation. Acute on chronic HFpEF ruled out Chest tightness has improved with initial treatment of her asthma exacerbation - High sen trop is WNL, BNP elevated at 171 but no signs of congestive failure on CXR ECG no ischemic changes (6) Hypertension: Plan: BPs elevated likely from headache pain and steroids Continue amlodipine and lisinopril and adjust as needed pain control of headache (7) Diabetes: Plan: HgbA1C 9.9%, uncontrolled DMII Hold metformin Monitor BSG ACHS, goal will be 110-160 with systemic steroids Normally takes 33 units HS lantus Pharmacy glycemic consult placed and adjusting insulin for steroid-induced hyperglycemia (8) CVA (cerebral vascular accident): Plan: Continue aspirin, but was NOT to be on Plavix after her stroke after 3 weeks--> confirmed in ext med history that she has not been prescribed Plavix since 11/2022--> dcd plavix Continue high intensity statin Continue BP control, needs improved DM control Needs to quit smoking Plan DVT proph-Lovenox SQ Dispo-continued stay on tele Admission and Anticipated Discharge Date Admission Date: September 05, 2023 Subjective Still with bad headache in frontal region, nausea and vomited once today. had some slight blurry vision which is now gone. Usually drinks 4 cans of regular Pepsi every day and hasn't had any caffeine since being here. Toradol and tylenol have not helped her FAYE. Benadryl last night made her fall asleep but woke up at 3:00 AM and still had headache. Feels her breathing is improved, less SOB. Tele with NSR-ST rates 90-100s Physical Exam Constitutional: WD/WN, vitals as above + obese Respiratory: normal respiratory effort, lungs clear to auscultation Cardiovascular: RRR, no murmur, no edema Gastrointestinal (Abdomen): normal bowel sounds, soft, nontender, no hepatosplenomegaly Psychiatric: A+Ox3, euthymic affect Results & Data Results & Data Vital Signs (Past 12 Hours) Vital Signs Temp Pulse Pulse Resp BP Pulse Ox O2 Del Method 09/07/23 16:09 97 H 09/07/23 15:31 91 H 18 97 Room Air 09/07/23 15:10 36.6 C 86 18 172/105 H 97 Room Air 09/07/23 13:29 97 H 09/07/23 11:40 90 18 98 Room Air 09/07/23 11:12 36.5 C 90 18 166/105 H 99 Room Air 09/07/23 08:00 Room Air 09/07/23 07:56 36.8 C 94 H 19 145/75 H 88 L Room Air 09/07/23 07:54 36.4 C L 93 H 18 159/106 H 99 Room Air 09/07/23 07:43 96 H 22 98 Room Air Laboratory Results CBC, BMP, magnesium, blood cxs reviewed Diagnostic Findings CXR reviewed Chest X-Ray 09/07/23 08:00 XR chest 2V PA/lateral CLINICAL HISTORY: f/u PNA COMPARISON STUDY: Chest radiograph September 05, 2023. FINDINGS: There is no pneumothorax or pleural effusion. The right lung airspace opacities on prior exam have resolved. No consolidation is identified. Enlargement of the cardiac silhouette is unchanged. There is no evidence for pulmonary edema. IMPRESSION: No acute cardiopulmonary findings. Resolution of the right lung airspace opacities on prior chest radiograph. PG Care Time/CCT Total # of Minutes Spent Total Time Spent with Patient: Total time spent is greater than 50% in coordination of care (as documented) at patient's floor/unit and/or counseling patient: Coding Level of Care Code 03125 SUB INP/OBS CARE 2/35MIN Diagnoses Asthma exacerbation J45.901 Pneumonia J18.9 Headache R51.9 Sinusitis J32.9 SOB (shortness of breath) R06.02 Hypertension I10 Diabetes E11.9 CVA (cerebral vascular accident) I63.9
[2023-09-07] MEDS: BUTALBITAL/ACETAMIN/CAFFEINE TAB PO PRN (20:35)
[2023-09-07] MEDS: PROCHLORPERAZINE 10 MG in SYRINGE 8 ML IV ONE (20:36)
[2023-09-08 07:00] LABS: Basophils # (auto) 0.01 K/uL (0.00-0.20); Basophils % (auto) 0.1 %; Hematocrit (blood only) 38.8 % (37.0-47.0); Immature Granulocytes # (auto) 0.05 K/uL (0.01-0.20); Immature Granulocytes % (auto) 0.4 %; Lymphocytes # (auto) 2.55 K/uL (1.20-3.40); Lymphocytes % (auto) 21.8 %; Mean Corpuscular Hemoglobin 23.9 pg (25.0-34.0); Mean Corpuscular Hgb Conc 30.9 g/dL (32.0-36.0); Mean Corpuscular Volume 77.1 fL (80.0-100.0); Mean Platelet Volume 10.4 fL (9.4-12.4); Monocytes # (auto) 0.88 K/uL (0.11-0.59); Monocytes % (auto) 7.5 %; Neutrophils # (auto) 8.21 K/uL (1.40-6.50); Neutrophils % (auto) 70.2 %; Platelet Count 277 K/uL (130-400); RDW Standard Deviation 39.1 fL (36.4-46.3); Red Blood Count 5.03 M/uL (4.20-5.40)
[2023-09-08 07:34] LABS: BUN Creatinine Ratio 27.5 (10-20); Calcium 9.2 mg/dl (8.6-10.3); Creatinine Clr Calc Pharmacy 128.3 ml/min; Est GFR (African American) 115.2 ml/min; Est GFR (Non-African American) 99.4 ml/min; Magnesium 1.9 mg/dl (1.7-2.4); Potassium 3.8 mmol/L (3.5-5.1)
[2023-09-08] MEDS: CARBOHYDRATES FOR HYPOGLYCEMIA PO PRN (07:39)
[2023-09-08] MEDS: methylPREDNISolone 40 MG in SYRINGE 0 ML IV SCH (09:54)
--- NOTE | 2023-09-08 11:44 | Pharmacy Report ---
Pharmacy Glycemic Short Note 2 - Date of Service September 08, 2023 - Glycemic Short BSG Results (Last 24 hours): 09/07/23 09/07/23 09/07/23 16:08 20:22 23:28 Glucose POC Glucose 234 H 202 H 128 H 09/08/23 09/08/23 09/08/23 06:44 07:30 07:31 Glucose 74 POC Glucose 62 L* 63 L* 09/08/23 09/08/23 08:02 11:10 Glucose POC Glucose 109 H 116 H OUTPATIENT ANTIDIABETIC REGIMEN: * Lantus 33 units SQ HS * Metformin ER 500mg PO Daily * A1c 10.9% 11/16/22, updated A1c ordered ASSESSMENT: 09/07 * Patient received total of 107 units of insulin yesterday, of which 55 were basal insulin * Fasting BSG trending down this AM to 62 mg/dL - treated per hypoglycemia protocol, no insulin given at breakfast. Steroids changing last evening from solumedrol 40 tid to bid dosing. Patient only received 2 doses of solumedrol yesterday. * Plan to loosen parameters this AM with changing steroids and decrease basal dosing 09/05 * Patient received total of 85 units of insulin yesterday, of which 63 units were basal * Fasting BSG 157 mg/dL - received 6 units of correctional insulin overnight. Continues with solumedrol 40 mg iv tid - will give another 30 units of basal insulin this AM and will have a scale for HS as slightly less steroids today 09/04 * 53 yo F, PMH CVA in 2022, HTN, HFrEF (LVEF of 45-50%), Mild aortic stenosis, DMII and Asthma, presents w/ asthma exacerbation. * Patient received 125mg IV Solu-Medrol x1 in ER - will give Lantus dose to cover and then place HS on scale based on BSG. * Will start with tight NovoLog parameters and loosen as steroid effects wear off. PLAN FOR INPATIENT GLYCEMIC CONTROL: * Hold outpatient oral diabetes medications * Basal insulin * Lantus - none this AM * Lantus 20-30 units HS * Bolus insulin * NovoLog per scale ACHS or Q6hrs while NPO * Goal Range: Low 110 mg/dL - High 140 mg/dL * Correction Factor: 20 mg/dL/unit * Nutritional / Prandial insulin per carb ratio of 1 unit per 7 grams CHO consumed
--- NOTE | 2023-09-08 16:56 | Hospitalist Progress Note ---
Date of Service September 08, 2023 Assessment & Plan (1) Asthma exacerbation: Plan: Has been experiencing progressive SOB, wheezing, and non-productive cough respiratory biofire is negative, CXR was read as Multifocal right lung opacities suggestive of pneumonia, but no leukocytosis and procal is negative. Repeat CXR 09/06 PA/Lat now no PNA Improving, wheezing resolved Given that PNA now ruled out--> dc doxycycline and ceftriaxone and continue on Augmentin only for for sinusitis coverage Stop IV Iza-Medrol 40mg IV bid after this evening's dose and convert to po prednisone 40mg daily for tomorrow-finish out taper Continue Budesonide, Formoterol nebs bid and qid Krista Cosmetologist made arrangements with home DME for new nebulizer machine upon discharge Continue incentive spirometry, flutter therapy, prn O2 to keep SpO2 at or above 92% -now weaned off O2 (2) Pneumonia: Plan: as above, now resolved on repeat CXR, was not likely true PNA on initial CXR continue ceftriaxone, doxy as above (3) Headache: Plan: thought to be related to sinusitis but not improving with abx and steroids, toradol, or tylenol could be migraine as she is also having nausea/vomiting x 1, photophobia; could also be from caffeine withdrawal as she typically drinks 4 Pepsis per day added fioricet prn, compazine for nausea and allow caffeine to be drunk--> headache now almost completely gone, much improved continue toradol prn (4) Sinusitis: Plan: with headache, sinus tenderness, patient-perceived redness and edema of cheeks--> change ceftriaxone to Augmentin for acute sinusitis and complete 10 day course (5) SOB (shortness of breath): Plan: Due to acute asthma exacerbation. Acute on chronic HFpEF ruled out Chest tightness has improved with initial treatment of her asthma exacerbation - High sen trop is WNL, BNP elevated at 171 but no signs of congestive failure on CXR ECG no ischemic changes (6) Hypertension: Plan: BPs elevated from headache pain and steroids, now improved Continue amlodipine and lisinopril and adjust as needed (7) Diabetes: Plan: HgbA1C 9.9%, uncontrolled DMII Hold metformin Monitor BSG ACHS, goal will be 110-160 with systemic steroids Normally takes 33 units HS [facility] Pharmacy glycemic consult placed and adjusting insulin for steroid-induced hyperglycemia (8) CVA (cerebral vascular accident): Plan: Continue aspirin, but was NOT to be on Plavix after her stroke after 3 weeks--> confirmed in ext med history that she has not been prescribed Plavix since 11/2022--> dcd plavix Continue high intensity statin Continue BP control, needs improved DM control Plan DVT proph-Lovenox SQ Dispo-continued stay but downgrade off tele, and likely dc to home tomorrow. Check 2 step walk test in AM to ensure no exertional O2 needed Admission and Anticipated Discharge Date Admission Date: September 05, 2023 Subjective Headache is now mostly gone with only some mild headache right around the bridge of her nose, SOB is improving. Tele with NSR normal rates Physical Exam Constitutional: WD/WN, vitals as above + obese ENMT: Ears: no hearing impairment Mouth: no lip abnormality and no tongue abnormality Respiratory: normal respiratory effort; no cough and not tachypneic Auscultation: no crackles, no rhonchi and no wheezes Cardiovascular: RRR, no murmur, no edema Gastrointestinal (Abdomen): normal bowel sounds, soft, nontender, no hepatosplenomegaly Psychiatric: A+Ox3, euthymic affect Results & Data Results & Data Vital Signs (Past 12 Hours) Vital Signs Temp Pulse Pulse Resp BP Pulse Ox O2 Del Method 09/08/23 15:47 36.7 C 80 18 152/94 H 98 Room Air 09/08/23 15:28 79 16 97 Room Air 09/08/23 11:23 84 16 98 Room Air 09/08/23 11:11 36.6 C 69 18 141/88 H 90 Room Air 09/08/23 07:54 36.5 C 89 18 135/82 91 Room Air 09/08/23 07:29 83 09/08/23 07:19 Room Air 09/08/23 07:18 73 18 96 Room Air Laboratory Results CBC< BMP, magnesium , blood cxs reviewed PG Care Time/CCT Total # of Minutes Spent Total Time Spent with Patient: Total time spent is greater than 50% in coordination of care (as documented) at patient's floor/unit and/or counseling patient: Coding Level of Care Code 37580 SUB INP/OBS CARE 3/50MIN Diagnoses Asthma exacerbation J45.901 Pneumonia J18.9 Headache R51.9 Sinusitis J32.9 SOB (shortness of breath) R06.02 Hypertension I10 Diabetes E11.9 CVA (cerebral vascular accident) I63.9
[2023-09-08] MEDS: AMOXICILLIN/CLAVULANATE 875 MG TAB PO SCH (17:31)
[2023-09-09] MEDS: diphenhydrAMINE Capsule 25 MG CAP PO ONE (00:23)
[2023-09-09 07:48] LABS: Basophils # (auto) 0.01 K/uL (0.00-0.20); Basophils % (auto) 0.1 %; Hematocrit (blood only) 39.2 % (37.0-47.0); Hemoglobin 12.1 g/dl (12.0-16.0); Immature Granulocytes # (auto) 0.05 K/uL (0.01-0.20); Immature Granulocytes % (auto) 0.5 %; Lymphocytes % (auto) 17.2 %; Mean Corpuscular Hemoglobin 23.8 pg (25.0-34.0); Mean Corpuscular Hgb Conc 30.9 g/dL (32.0-36.0); Mean Platelet Volume 10.9 fL (9.4-12.4); Monocytes # (auto) 0.59 K/uL (0.11-0.59); Neutrophils # (auto) 7.54 K/uL (1.40-6.50); Neutrophils % (auto) 76.2 %; Platelet Count 279 K/uL (130-400); RDW Coefficient of Variation 14.1 % (11.5-14.5); RDW Standard Deviation 39.2 fL (36.4-46.3); Red Blood Count 5.09 M/uL (4.20-5.40); White Blood Count 9.89 K/ul (4.8-10.8)
[2023-09-09 08:10] LABS: BUN Creatinine Ratio 26.2 (10-20); Calcium 9.1 mg/dl (8.6-10.3); Creatinine Clr Calc Pharmacy 136.2 ml/min; Est GFR (African American) 117.5 ml/min; Est GFR (Non-African American) 101.4 ml/min; Potassium 4.4 mmol/L (3.5-5.1)
[2023-09-09] MEDS: predniSONE 20 MG TAB PO SCH (08:22)
--- NOTE | 2023-09-09 11:58 | Discharge Summary ---
Date of Service September 09, 2023 Admission HPI Per Admitting Provider Angie is a 53 year old female with a PMH significant for previous CVA in 2022, HTN, HFrEF (LVEF of 45-50%), Mild aortic stenosis, DMII and Asthma who presented to the [facility] ED on 09/05/23 with complaints of progressive SOB/wheezing over the past 2 weeks. She was noted to be tachycardic at 103 and tachypneic at 26 BPM on arrival but otherwise stable. Labs were significant for a VBG pH of 7.34, pCO2 of 50, pO2 of 28, negative procal, and negative full respiratory biofire. Chest xray was read as "1. Multifocal right lung opacities suggestive of pneumonia. Radiographic follow-up to ensure resolution is recommended. 2. Stable enlargement of the cardiac silhouette.". The patient was noted to have significant bronchospasm on arrival for ED staff. She was given 125 mg IV Solu- medrol and 2 albuterol nebulizer treatments with minimal improvement in symptoms. We were asked to admit the patient for ongoing treatment of asthma exacerbation. At the time of the exam the patient was sitting on the side of her bed and appears to be in mild respiratory distress with audible expiratory wheezing and tripod positioning but able to speak in complete sentences. She states that she has been having progressive non-productive cough, wheezing, and SOB over the past 2 weeks. When asked, she denies tobacco use, but her and [id number] both smoke in their home. Denies recent fever or chills. Has had chest tightness but denies chest pain, hemoptysis, productive cough, vomiting, abd pain, dysuria, hematuria, melena, LE swelling, and recent trauma. Patient had been using her spiriva and PRN albuterol nebs without improvement in the symptoms. Her nebulizer machine broke approximately 48 hours ago as well. She had minimal improvement of her symptoms after the first 2 albuterol nebs in the ED. She is a full code and her would make medical decisions for her if she cannot make them herself. Please refer to Dr. Angel's attestation for any changes to the treatment plan Admission Exam Per Admitting Provider General: In mild distress due to respiratory status with tripod positioning and audible expiratory wheezing, no stridor noted, stated age, morbidly obese, non- toxic appearing HEENT: Normocephalic, atraumatic, no scleral icterus, pupils around round, symmetrical, and reactive to light, moist mucus membranes, trachea midline, no thyromegaly Chest/Pulm: No mild distress, able to speak in complete sentences, symmetrical chest expansion, diffuse expiratory wheezing Cardiac: RRR, no murmurs noted Abdomen: Negative for ascites and bruising, normoactive bowel sounds, soft, non- tender to palpation throughout Musculoskeletal: Symmetrical and without signs of acute trauma, upper and lower extremities with full ROM, no atrophy, spasticity, or flaccidity Extremities: Radial, dorsalis pedis, and posterior tibial pulses are intact and symmetrical, no edema noted in the BL LE's Skin: Warm, dry, no rashes , lesions, or scars noted Neuro: Alert and oriented to person, place, month, year, and president, no focal defects, no tremors noted Psych: Mild distress, polite and cooperative during the exam Principal Diagnosis Acute asthma exacerbation Discharge Exam General: Awake, conversant, obese Heart: S1, S2/regular rate and rhythm, no murmur rubs or gallops Lungs: Clear to auscultation bilaterally. Normal effort Abdomen: Soft/nontender/nondistended. No hepatosplenomegaly Extremities: No clubbing/cyanosis. No edema Behavior: Appropriate, cooperative Discharge Data Allergies Allergy/AdvReac Type Severity Reaction Status Date / Time orange Allergy Hives Verified 09/05/23 10:33 peach Allergy Hives Verified 09/05/23 10:33 Consultations 09/05/23 11:04 ED Decision to Admit Stat Hospital Course (1) Asthma exacerbation: Has been experiencing progressive SOB, wheezing, and non-productive cough respiratory biofire is negative, CXR was read as Multifocal right lung opacities suggestive of pneumonia, but no leukocytosis and procal is negative. Repeat CXR 09/06 PA/Lat now no PNA Improving, wheezing resolved Given that PNA now ruled out--> dc-ed doxycycline and ceftriaxone and continue on Augmentin only for for sinusitis coverage to complete the course Treated with IV Iza-Medrol IV, switched to p.o. prednisone. Will be discharged on prednisone taper Continue Budesonide, Formoterol nebs bid and qid Krista Cooling Tower Technician made arrangements with home DME for new nebulizer machine upon discharge Continue incentive spirometry, flutter therapy, prn O2 to keep SpO2 at or above 92% -now weaned off O2 Rest and exercise completed. Patient is not needing oxygen (2) Pneumonia: as above, now resolved on repeat CXR, was not likely true PNA on initial CXR Continue Augmentin as above (3) Headache: thought to be related to sinusitis but not improving with abx and steroids, toradol, or tylenol could be migraine as she is also having nausea/vomiting x 1, photophobia; could also be from caffeine withdrawal as she typically drinks 4 Pepsis per day added fioricet prn, compazine for nausea and allow caffeine to be drunk--> headache now completely gone (4) Sinusitis: with headache, sinus tenderness, patient-perceived redness and edema of cheeks--> change ceftriaxone to Augmentin for acute sinusitis and complete 10 day course (5) SOB (shortness of breath): Due to acute asthma exacerbation. Acute on chronic HFpEF ruled out Chest tightness has improved with initial treatment of her asthma exacerbation - High sen trop is WNL, BNP elevated at 171 but no signs of congestive failure on CXR ECG no ischemic changes (6) Hypertension: BPs elevated from headache pain and steroids, now improved Continue amlodipine and lisinopril and adjust as needed (7) Diabetes: HgbA1C 9.9%, uncontrolled DMII Metformin was held during this hospital stay. Patient's insulin was adjusted for steroid-induced hyperglycemia during this hospital stay (8) CVA (cerebral vascular accident): Continue aspirin, but was NOT to be on Plavix after her stroke after 3 weeks--> confirmed in ext med history that she has not been prescribed Plavix since 11/2022--> dcd plavix Continue high intensity statin Continue BP control, needs improved DM control Plan Discharge to home today Total Time Total Time Spent Total Time Spent (In Minutes): 35 Discharge Plan Discharge Items Patient Disposition: Home - Self-Care Reason For Visit: ASTHMA EXACERBATION Discharge Diagnosis: Asthma exacerbation Activity: Resume your previous activity Non-emergency contact: Primary Care Provider Call non-emergency contact if: you have any medication questions and your symptoms worsen Follow-up/Referrals: Cheli Charles DO [Primary Care Provider] - 09/13/23 10:25 am (Dr. Angela) Diet: Carb Consistent or DM2 and Heart Healthy Addtl Attending Provider Instructions: Advised to follow-up with PCP in 1 week Pending Studies at Discharge: No Stand-Alone Forms: My [facility], Work/School Release, Smoking Cessation Medications and DC Order Prescriptions: New amoxicillin-pot clavulanate 875-125 mg Tablet 1 tab PO BIDM 3 Days Qty: 6 0RF prednisone 10 mg tablet 10 mg PO DAILY Qty: 20 0RF Rx Instructions: 4 tabs for 2 days, then drop by 1 tab every 2 days, then stop Continued albuterol sulfate 90 mcg/actuation HFA aerosol inhaler 2 puff inhalation Q6H PRN (Reason: Wheezing) budesonide-formoterol 160-4.5 mcg/actuation HFA aerosol inhaler 2 puff INHALATION BID aspirin 81 mg Tablet,Delayed Release (Dr/Ec) 81 mg PO DAILY Qty: 30 0RF amlodipine 2.5 mg tablet 2.5 mg PO PM Qty: 30 0RF metformin 500 mg tablet extended release 24 hr 500 mg PO PM Qty: 30 0RF Rx Instructions: take on a full stomach acetaminophen 500 mg Tablet 500 mg PO Q6H PRN (Reason: Pain) cholecalciferol (vitamin D3) [Vitamin D3] 50 mcg (2,000 unit) Capsule 50 mcg PO QAM lisinopril 20 mg Tablet 20 mg PO QAM Spiriva Respimat 2.5 mcg/actuation Mist 2 puff INHALATION BID Qty: 0 atorvastatin 80 mg tablet 80 mg PO HS albuterol sulfate 2.5 mg /3 mL (0.083 %) solution for nebulization 2.5 mg continuous nebulization Q6H PRN (Reason: WHEEZING/sob) insulin glargine [Lantus U-100 Insulin] 100 unit/mL solution 33 unit subcut HS Discontinued clopidogrel 75 mg Tablet 75 mg PO QAM Qty: 21 0RF Discharge Orders: Discharge Order (Routine); Ordered 09/09/23 Ordered By: Verito Valencia/Other Patient Handouts: Managing Type 2 Diabetes, 5 Steps for Eating Healthier Admission Data Admit Date/Time: 09/05/23 10:29 Attending Provider: Verito Farrell Admit Provider: Stephen Angel Primary Care Provider: Cheli Charles Other Providers: Stephen Angel Other Interventions: Discharge Summary Assessment (RN) Last Done: 09/09/23 12:06 Discharge Summary Assessment (RN) Last Done: 09/09/23 12:57 Coding Level of Care Code 87170 INP/OBS DISCH >30 MIN Diagnoses Asthma exacerbation J45.901 Pneumonia J18.9 Headache R51.9 Sinusitis J32.9 SOB (shortness of breath) R06.02 Hypertension I10 Diabetes E11.9 CVA (cerebral vascular accident) I63.9
== END 2023-09-09 12:57 | disposition home or self-care (01) | DRG 202 ==
LOC: ED 08:45 → SUATTDRO 10:29 → EDINP 10:29 → 2S 15:24
DX: Z79.899 Other long term (current) drug therapy; Z79.02 Long term (current) use of antithrombotics/antiplatelets; Z79.82 Long term (current) use of aspirin; Z11.52 Encounter for screening for COVID-19; I11.0 Hypertensive heart disease with heart failure; E78.5 Hyperlipidemia, unspecified; E66.01 Morbid (severe) obesity due to excess calories; E11.9 Type 2 diabetes mellitus without complications; Z68.43 Body mass index [BMI] 50.0-59.9, adult; I50.22 Chronic systolic (congestive) heart failure; R51.9 Headache, unspecified; J01.90 Acute sinusitis, unspecified; Z86.73 Personal history of transient ischemic attack (TIA), and cerebral infarction without residual deficits; Z79.84 Long term (current) use of oral hypoglycemic drugs; J18.9 Pneumonia, unspecified organism; J45.901 Unspecified asthma with (acute) exacerbation